=== PATIENT | female | born 1985 | race Caucasian/White ===

== ENCOUNTER → 2020-03-03 10:24 | Outpatient (BNVA) | payer OTHER, SELFPAY | PROVIDERS: PCP Internal Medicine; Referring Provider Internal Medicine; Visit Provider Nurse Practitioner | DX: K21.9 Gastro-esophageal reflux disease without esophagitis (principal); Z88.0 Allergy status to penicillin; Z88.8 Allergy status to other drugs, medicaments and biological substances; Z79.899 Other long term (current) drug therapy | CPT/HCPCS: 99212 ==

== ENCOUNTER 2020-06-18 10:14 | Outpatient (REF) | payer OTHER, SELFPAY ==
[2020-06-18 11:10] LABS: MANUAL DIFF FLAG NO
[2020-06-18 11:16] LABS: Basophils Percent Auto 0.2 % (0-2); Eosinophils Absolute Auto 0.1 X10*3/uL (0.0-0.4); Hematocrit 42.1 % (37-47); Hemoglobin 13.9 g/dl (12.0-16.0); Imm Gran Abs Auto 0.02 X10*3/uL (0.00-0.03); Imm Gran Pct Auto 0.3 % (0.0-0.4); Lymphocytes Absolute Auto 1.6 X10*3/uL (1.2-4.9); Lymphocytes Percent Auto 25.6 % (20-40); Mean Corpuscular Volume 90.9 fL (80-98); Mean Platelet Volume 10.8 fL (9.4-12.3); Monocytes Absolute Auto 0.5 X10*3/uL (0.1-1.2); Monocytes Percent Auto 7.7 % (2-11); Neutrophils Percent Auto 65.2 % (45-73); Platelet Count 229 X10*3/uL (160-400); Red Blood Count 4.63 X10*6/uL (4.20-5.50); Red Cell Distribution Width 12.1 % (11.0-16.0); White Blood Count 6.1 X10*3/uL (4.8-10.8)
[2020-06-18 11:36] LABS: Glucose Urine UA NEG (NEG); Leukocyte Esterase Urine NEG (NEG); Nitrite Urine NEG (NEG); Specific Gravity - Urine >= 1.030 (1.005-1.025); Urine Blood NEG (NEG); Urine Ketones NEG (NEG); Urine Protein NEG (NEG-TRACE)
[2020-06-18 11:39] LABS: Appearance Urine HAZY; Color Urine YELLOW
[2020-06-18 11:48] LABS: Alanine Aminotransferase 24 U/L (0-31); Albumin Level 4.3 g/dL (3.5-5.0); Alkaline Phosphatase 61 U/L (39-117); Anion Gap 14 (12-20); Aspartate Amino Transferase 16 U/L (5-31); Blood Urea Nitrogen 12 mg/dL (9-16); Calcium 9.1 mg/dL (8.4-10.2); Carbon Dioxide 24 mmol/L (22-29); Chloride 104 mmol/L (96-108); Cholesterol 188 mg/dL; Estimated Glomerular Filt Rate > 60; Glucose Random 117 mg/dL (60-115); HDL Cholesterol 46 mg/dL; LDL Cholesterol Calculated 122 mg/dl; Potassium 4.1 mmol/L (3.3-5.1); Sodium 138 mmol/L (135-145); Total Protein 6.9 g/dL (6.5-8.0); Triglycerides 101 mg/dL
[2020-06-18 11:58] LABS: Free T4 (Free Thyroxine) 0.92 ng/dL (0.71-1.85); Thyroid Stimulating Hormone 1.39 uIU/mL (0.32-4.0); Vitamin D 25-OH Total 16.7 ng/mL (>30)
[2020-06-18 12:08] LABS: Bacteria Urine 1+ /LPF; Mucus Urine 2+ /LPF; RBC Urine 0-2 /HPF (0); Squamous Epithelial Cell Urine 2+ /LPF; WBC Urine 0-2 /HPF (0-4)
[2020-06-18 12:16] LABS: Folate 17.2 ng/mL (> or = 4.0); Vitamin B12 379 pg/mL (200-900)
== END 2020-06-18 10:15 | disposition home or self-care (01) ==
LOC: HO.LAB 10:14
PROVIDERS: PCP Internal Medicine; Visit Provider Internal Medicine
DX: E66.9 Obesity, unspecified (principal); E78.00 Pure hypercholesterolemia, unspecified
CPT/HCPCS: 36415; 80053; 80061; 81001; 82306; 82607; 82746; 84439; 84443; 85025

== ENCOUNTER 2020-07-28 08:49 | Outpatient (REF) | payer OTHER, SELFPAY ==
--- NOTE | ~2020-07-28 | FL_ITS ---
EXAMINATION: FL BARIUM SWALLOW CLINICAL INFORMATION: Episodes of dysphagia or obstruction in the neck region. COMPARISON: None TECHNIQUE: Barium swallow examination is performed using fluoroscopic evaluation in addition to multiple fluoroscopic spot views. The patient is imaged both upright and prone and using both thick and thin sulfate along with effervescent granules. Fluoroscopy time: 1.2 minutes DAP: 7.3 Gycm2 Images: 58 FINDINGS: Following oral administration of thick barium and barium-coated turkey in upright view, there is normal propagation of bolus from the oral cavity through the pharynx, esophagus into stomach without any evidence of obstruction, narrowing or stricture. No laryngeal penetration or aspiration seen. No soft tissue mass or filling defect seen within the oropharynx or pharynx. On oral administration of barium tablet, there is spontaneous passage of the tablet through the pharynx to the esophagus into stomach. No obstruction seen. On placing patient prone and oral administration of thin barium, there is good distention of the entire esophagus without any intraluminal filling defect or narrowing. No indentation or mass effect seen in the esophagus, in the neck or the chest region. FL/FL barium swallow IMPRESSION: Unremarkable barium swallow.
== END 2020-07-28 08:50 | disposition home or self-care (01) ==
LOC: HO.XRAY 08:49
PROVIDERS: PCP Internal Medicine; Visit Provider Internal Medicine
DX: R13.10 Dysphagia, unspecified (principal)
CPT/HCPCS: 74220

== ENCOUNTER → 2020-08-31 15:25 | Outpatient (BNVA) | payer OTHER, SELFPAY | PROVIDERS: Visit Provider Nurse Practitioner ==

== ENCOUNTER → 2020-11-15 08:12 | Outpatient (BNVA) | payer OTHER, SELFPAY | PROVIDERS: PCP Internal Medicine; Visit Provider Nurse Practitioner ==

== ENCOUNTER 2021-04-15 08:14 | Outpatient (REF) | payer OTHER, SELFPAY ==
--- NOTE | ~2021-04-15 | XR_ITS ---
EXAMINATION: XR CHEST CLINICAL INFORMATION: Pain in right shoulder. COMPARISON: None TECHNIQUE: PA and lateral views of the chest are obtained. FINDINGS: No significant abnormality is noted involving the heart, lungs, mediastinum, bony thorax or soft tissues. XR/XR chest 2V IMPRESSION: Normal chest.
--- NOTE | ~2021-04-15 | XR_ITS ---
EXAMINATION: XR SHOULDER, RIGHT XR SHOULDER, LEFT CLINICAL INFORMATION: Pain in right shoulder. COMPARISON: None TECHNIQUE: AP external, Grashey, scapular Y and axillary views of each shoulder are obtained. FINDINGS: Right Shoulder: There is no fracture or malalignment. The glenohumeral and acromioclavicular joints appear normal. Left Shoulder: There is no fracture or malalignment. The glenohumeral and acromioclavicular joints appear normal. XR/XR shoulder LT min 2V IMPRESSION: Normal bilateral shoulders.
--- NOTE | ~2021-04-15 | XR_ITS ---
EXAMINATION: XR SHOULDER, RIGHT XR SHOULDER, LEFT CLINICAL INFORMATION: Pain in right shoulder. COMPARISON: None TECHNIQUE: AP external, Grashey, scapular Y and axillary views of each shoulder are obtained. FINDINGS: Right Shoulder: There is no fracture or malalignment. The glenohumeral and acromioclavicular joints appear normal. Left Shoulder: There is no fracture or malalignment. The glenohumeral and acromioclavicular joints appear normal. XR/XR shoulder RT min 2V IMPRESSION: Normal bilateral shoulders.
[2021-04-15 08:30] LABS: MANUAL DIFF FLAG NO
[2021-04-15 08:41] LABS: Basophils Percent Auto 0.3 % (0-2); Eosinophils Absolute Auto 0.1 X10*3/uL (0.0-0.4); Eosinophils Percent Auto 1.4 % (0-4); Hematocrit 42.2 % (37.0-47.0); Imm Gran Abs Auto 0.02 X10*3/uL (0.00-0.03); Imm Gran Pct Auto 0.3 % (0.0-0.4); Lymphocytes Absolute Auto 1.7 X10*3/uL (1.2-4.9); Lymphocytes Percent Auto 25.2 % (20-40); Mean Corpuscular HGB Conc 33.2 g/dl (31.0-35.0); Mean Corpuscular Hemoglobin 30.4 pg (27.0-33.0); Mean Corpuscular Volume 91.5 fL (80.0-98.0); Mean Platelet Volume 10.4 fL (9.4-12.3); Monocytes Absolute Auto 0.6 X10*3/uL (0.1-1.2); Neutrophils Absolute Auto 4.2 x10*3/uL (2.0-8.3); Neutrophils Percent Auto 63.8 % (45-73); Platelet Count 213 X10*3/uL (160-400); Red Blood Count 4.61 X10*6/uL (4.20-5.50); Red Cell Distribution Width 11.7 % (11.0-16.0); White Blood Count 6.6 X10*3/uL (4.8-10.8)
[2021-04-15 08:49] LABS: Estimated Average Glucose 103 mg/dL; Hemoglobin A1c % 5.2 %
[2021-04-15 09:07] LABS: Alanine Aminotransferase 23 U/L (0-31); Albumin Level 4.4 g/dL (3.5-5.0); Alkaline Phosphatase 58 U/L (39-117); Anion Gap 12 (12-20); Aspartate Amino Transferase 17 U/L (5-31); Bilirubin Total 0.9 mg/dL (0.0-1.0); Blood Urea Nitrogen 13 mg/dL (9-16); C Reactive Protein 0.52 mg/dL (< or = 0.50); Calcium 9.5 mg/dL (8.4-10.2); Carbon Dioxide 23 mmol/L (22-29); Chloride 106 mmol/L (96-108); Cholesterol 204 mg/dL; Estimated Glomerular Filt Rate > 60; Glucose Random 112 mg/dL (60-115); HDL Cholesterol 51 mg/dL; LDL Cholesterol Calculated 135 mg/dl; Potassium 4.3 mmol/L (3.3-5.1); Sodium 137 mmol/L (135-145); Total Protein 7.1 g/dL (6.5-8.0); Triglycerides 94 mg/dL
[2021-04-15 09:29] LABS: Free T4 (Free Thyroxine) 0.97 ng/dL (0.71-1.85); Thyroid Stimulating Hormone 1.54 uIU/mL (0.32-4.0); Vitamin D 25-OH Total 19.1 ng/mL (>30)
[2021-04-15 09:34] LABS: Erythrocyte Sedimentation Rate 4 MM/HR (0-20)
[2021-04-15 09:41] LABS: Cortisol Random 9.2 ug/dL
[2021-04-15 09:52] LABS: Appearance Urine CLEAR; Color Urine YELLOW; Glucose Urine UA NEG (NEG); Leukocyte Esterase Urine NEG (NEG); Nitrite Urine NEG (NEG); Specific Gravity - Urine 1.025 (1.005-1.025); Urine Blood NEG (NEG); Urine Ketones NEG (NEG); Urine Protein NEG (NEG-TRACE)
[2021-04-15 09:52] LABS: Folate 16.1 ng/mL (> or = 4.0); Vitamin B12 329 pg/mL (200-900)
[2021-04-15 10:07] LABS: Bacteria Urine 2+ /LPF; Mucus Urine 1+ /LPF; RBC Urine 0 /HPF (0); Squamous Epithelial Cell Urine 2+ /LPF; WBC Urine 0-2 /HPF (0-4)
== END 2021-04-15 08:15 | disposition home or self-care (01) ==
LOC: HO.XRAY 08:14
PROVIDERS: PCP Internal Medicine; Visit Provider Internal Medicine
DX: M25.511 Pain in right shoulder (principal); M25.512 Pain in left shoulder; E66.9 Obesity, unspecified; E78.00 Pure hypercholesterolemia, unspecified
CPT/HCPCS: 36415; 71046; 73030; 80053; 80061; 81001; 82306; 82533; 82607; 82746; 83036; 84439; 84443; 85025; 85652; 86140

== ENCOUNTER → 2021-05-16 11:05 | Outpatient (BNVA) | payer OTHER, SELFPAY | PROVIDERS: PCP Internal Medicine; Referring Provider Internal Medicine; Visit Provider Nurse Practitioner | DX: K21.9 Gastro-esophageal reflux disease without esophagitis (principal); R13.10 Dysphagia, unspecified | CPT/HCPCS: 99212 ==

== ENCOUNTER 2022-01-26 09:22 | Outpatient (REF) | payer OTHER, SELFPAY ==
[2022-01-26 10:24] LABS: MANUAL DIFF FLAG NO
[2022-01-26 11:04] LABS: Basophils Percent Auto 0.4 % (0-2); Eosinophils Absolute Auto 0.1 X10*3/uL (0.0-0.4); Hematocrit 42.4 % (37.0-47.0); Hemoglobin 14.1 g/dl (12.0-16.0); Imm Gran Abs Auto 0.02 X10*3/uL (0.00-0.03); Imm Gran Pct Auto 0.3 % (0.0-0.4); Lymphocytes Absolute Auto 1.6 X10*3/uL (1.2-4.9); Lymphocytes Percent Auto 22.7 % (20-40); Mean Corpuscular HGB Conc 33.3 g/dl (31.0-35.0); Mean Corpuscular Hemoglobin 30.2 pg (27.0-33.0); Mean Corpuscular Volume 90.8 fL (80.0-98.0); Mean Platelet Volume 10.8 fL (9.4-12.3); Monocytes Absolute Auto 0.5 X10*3/uL (0.1-1.2); Monocytes Percent Auto 7.1 % (2-11); Neutrophils Absolute Auto 4.7 x10*3/uL (2.0-8.3); Neutrophils Percent Auto 67.5 % (45-73); Platelet Count 216 X10*3/uL (160-400); Red Blood Count 4.67 X10*6/uL (4.20-5.50); White Blood Count 6.9 X10*3/uL (4.8-10.8)
[2022-01-26 11:30] LABS: Alanine Aminotransferase 18 U/L (0-31); Albumin Level 4.5 g/dL (3.5-5.0); Alkaline Phosphatase 68 U/L (39-117); Anion Gap 16 (12-20); Aspartate Amino Transferase 14 U/L (5-31); Bilirubin Total 0.5 mg/dL (0.0-1.0); Blood Urea Nitrogen 14 mg/dL (9-16); C Reactive Protein 0.53 mg/dL (< or = 0.50); Calcium 9.2 mg/dL (8.4-10.2); Carbon Dioxide 21 mmol/L (22-29); Chloride 103 mmol/L (96-108); Estimated Glomerular Filt Rate > 60; Glucose Random 105 mg/dL (60-115); Magnesium 1.8 mg/dL (1.6-2.6); Potassium 4.2 mmol/L (3.3-5.1); Rheumatoid Factor < 15.0 IU/mL (<15.0); Sodium 136 mmol/L (135-145); Total Protein 7.1 g/dL (6.5-8.0)
[2022-01-26 11:54] LABS: Ferritin 37 ng/mL (10-122); Free T4 (Free Thyroxine) 0.93 ng/dL (0.71-1.85); Thyroid Stimulating Hormone 1.07 uIU/mL (0.32-4.0)
[2022-01-26 12:12] LABS: Erythrocyte Sedimentation Rate 5 MM/HR (0-20)
[2022-01-26 12:38] LABS: Insulin 9 uU/mL (2-29)
[2022-01-27 12:47] LABS: Calcium (PTHI) 9.4 mg/dL (8.6-10.2); PTHI 79 pg/mL (16-77)
[2022-01-27 21:36] LABS: Thyroid Peroxidase Antibodies 6 IU/mL (<9)
[2022-01-27 21:52] LABS: Lyme Abs Screen <0.90 index
[2022-01-28 19:07] LABS: Anti Nuclear Antibody Screen NEGATIVE (NEGATIVE)
[2022-02-05 20:31] LABS: Cortisol, Free 0.17 mcg/dL
== END 2022-01-26 09:23 | disposition home or self-care (01) ==
LOC: HO.LAB 09:22
PROVIDERS: PCP Internal Medicine; Visit Provider Internal Medicine
DX: E66.9 Obesity, unspecified (principal); R79.89 Other specified abnormal findings of blood chemistry
CPT/HCPCS: 36415; 80053; 82530; 82728; 83525; 83735; 83970; 84100; 84439; 84443; 85025; 85652; 86038; 86039; 86140; 86376; 86431; 86617; 86618

== ENCOUNTER 2022-11-17 16:28 | Outpatient (AMB) | payer OTHER, MEDICAID, SELFPAY ==
[2022-11-17 16:29] VITALS: BP 100/62; PULSE 83; O2SAT 99; BMI 28.3
--- NOTE | 2022-11-17 16:29 | A.OFFPC_ITS ---
Vital Signs 11/17/22 16:29 Height 5 ft 5 in Weight 170 lb BMI 28.3 BP 100/62 Blood Pressure Location Lt brachial Pulse 83 Pulse Source Pulse Oximeter Temp Source Skin Pulse Oximetry (%) 99 Oxygen Delivery Method Room Air Intake Visit Reasons: IBS pain Intake Note: pt states IBS flair up [id number] Public Relations Representative Required: No Allergies amoxicillin [AMOXICILLIN] Allergy (Intermediate, Verified 11/17/22 16:38) HIVES Penicillins Allergy (Intermediate, Verified 11/17/22 16:38) HIVES metronidazole [From FLAGYL] Allergy (Mild, Verified 11/17/22 16:38) HIVES citalopram [Celexa] Allergy (Unknown, Verified 11/17/22 16:38) palpatations oxycodone [Percocet] Adverse Reaction (Unknown, Verified 11/17/22 16:38) stomach upset Medication List - Last Reconciled 11/17/22 by JOSIAH Licea alprazolam 0.25 mg PO DAILY PRN diphenhydramine HCl (Benadryl Allergy) 25 mg PO Q6H PRN famotidine 40 mg PO BEDTIME 90 days lactobacillus combination no.8 (Adult Probiotic) 3,000 mmu cells PO DAILY loratadine (Allergy Relief (loratadine)) 10 mg PO DAILY 90 days meclizine 25 mg PO TID PRN promethazine 25 mg PO Q4-6H PRN Tobacco use date assessed: 11/17/22 HPI IBS pain HPI Details Patient is a 37-year-old female who presents today to follow-up on IBS. Patient of Dr. Luis. Medical history significant for GERD, impaired glucose tolerance, insomnia, IBS among others. Patient reports that every couple years she has on episode where she starts with severe abdominal pain and then she has to move bowel, usually diarrhea and then her pain resolves. Patient reports this episode 3 weeks ago. Today, she denies shortness of breath, no chest pain, no nausea or vomiting, no diarrhea or constipation, no abdominal pain, no blood in stool. She would like to have something for IBS p.r.n.. In addition, patient reports that she will be having abdominoplasty in 6 days at [facility], and she reports that surgeon does not need EKG or blood work, patient reports that she would like to request EKG and blood work for peace of mind. [facility] Medical History (Updated 11/17/22 @ 16:46 by JOSIAH Licea) Allergic rhinitis Annual physical exam ASCUS (atypical squamous cells of undetermined significance) on gynecologic Papanicolaou smear complicating , antepartum Atypical nevus Irritable bowel syndrome Migraine Obesity (BMI 30-39.9) PMDD (premenstrual dysphoric disorder) Varicose veins of both lower extremities Surgical History H/O tubal ligation History of Family History Father Hypercholesterolemia HTN (hypertension) Mother Rheumatoid arteritis Myocardial infarction Paternal Grandfather Diabetes Chronic kidney disease Renal failure Paternal Grandmother Stroke Maternal Grandmother Respiratory illness Stroke Lung cancer Paternal Aunt Colon cancer Sister No problems noted. Son Depression Substance abuse Suicidal ideation Social History Housing: Apartment Alcohol intake: current Alcohol intake frequency: holidays/special occasions only Alcohol type: wine Patient Tobacco Use Status: Never used Tobacco e-Cigarette/Vaping Use: Never Used Second Hand Smoke Exposure: No Current occupational status: employed Cognitive needs: No Hearing needs: No Vision needs: No Questionnaire Thrive Questionnaire Date Thrive assessed: 01/20/22 AUDIT C Alcohol Use Questionnaire (AUDIT-C) 1. How often do you have a drink containing alcohol?: 2-4 times a month 2. How many drinks containing alcohol do you have on a typical day when you are drinking?: 1 or 2 3. How often do you have six or more drinks on one occasion?: Never Total Score: 2 Score Reviewed/Action Taken: No JAKE-7 AMB Questionnaire JAKE-7 Date JAKE - 7 assessed: 01/20/22 Source: Developed by Drs. Sheldon Key, Ginger gUalde, Eliseo Aguirre and colleagues, with an educational cassi from [employer]. Review of Systems Const Denies body aches, Denies chills, Denies fever(s) and Denies headache(s) Eyes Denies change in vision ENT Denies dizziness, Denies otalgia, Denies headache(s), Denies nasal discharge, Denies sinus pain and Denies sore throat Card Denies chest pain, Denies edema, Denies lightheadedness and Denies dyspnea Resp Denies cough and Denies dyspnea GI Reports as per HPI, Denies abdominal pain, Denies constipation, Denies diarrhea, Denies nausea and Denies vomiting Denies dysuria Musc Denies myalgias Skin/Breast Denies rash Neuro Denies dizziness and Denies headache(s) Physical exam (Primary Care) Vital Signs: Last Vital Signs Pulse 83 11/17/22 16:29 BP 100/62 11/17/22 16:29 Pulse Ox 99 11/17/22 16:29 Oxygen Delivery Method Room Air 11/17/22 16:29 BMI result Body Mass Index 28.3 Tobacco/Smoking Status: Tobacco use Status Tobacco use date assessed 11/17/22 11/17/22 16:34 Patient Tobacco Use Status Never used Tobacco 11/17/22 16:34 e-Cigarette/Vaping Use Never Used 11/17/22 16:34 Thrive Assessment: Date of Thrive Assessment Date Thrive assessed 01/20/22 11/17/22 16:34 Const General: cooperative and no acute distress Orientation/consciousness: patient oriented x3 HENMT Head: Yes normocephalic and Yes atraumatic Mouth: oropharynx normal and moist mucous membranes Throat: Yes posterior oropharynx normal Eyes General: appearance normal, both eyes and all related structures Neck Neck: Yes normal visual inspection and Yes full ROM Resp Effort & Inspection: normal respiratory effort and able to speak in complete sentences Auscultation: clear to auscultation bilaterally, no crackles, no rales, no rhonchi and no wheezes Cardio Rate: regular rate Rhythm: regular rhythm Heart sounds: S1 normal heart sound present and S2 normal heart sound present GI Palpation (GI): Soft to palpation, not firm, nontender, no guarding, not rigid and no hepatosplenomegaly Auscultation: normal bowel sounds Skin General skin exam: no rashes or lesions noted Neuro General: patient oriented x3 Gait exam (Neuro): Normal gait present Extrem General: Yes full ROM and No edema Assessment and Plan Assessment & Plan (1) Irritable bowel syndrome: Code(s): K58.9 - Irritable bowel syndrome without diarrhea Plan: Patient denies acute GI symptoms in the office today, she reports last IBS episode 3 weeks ago. Physical exam normal today. Will provide patient with dicyclomine 10 mg q.i.d. p.r.n. - possible adverse reactions reviewed with the patient. Patient agreed with the plan. Keep appointment with PCP as scheduled or follow-up sooner as needed. Orders: Orders Basic Metabolic Panel Today K58.9 - Irritable bowel syndrome without diarrhea ECG 12 lead EKG Today K58.9 - Irritable bowel syndrome without diarrhea Complete Blood Count no Diff Today K58.9 - Irritable bowel syndrome without diarrhea Medications: New dicyclomine 10 mg PO QID PRN 30 caps 0RF abdominal pain K58.9 - Irritable bowel syndrome without diarrhea Coding Level of Care Code Est Pt Level 3 (35690) Diagnoses Irritable bowel syndrome K58.9
== END 2022-11-17 16:54 | disposition home or self-care (01) ==
PROVIDERS: PCP Internal Medicine; Visit Provider Nurse Practitioner Family
DX: K58.9 Irritable bowel syndrome, unspecified (principal)
CPT/HCPCS: 99213

== ENCOUNTER 2022-11-21 06:21 | Outpatient (REF) | payer OTHER, MEDICAID, SELFPAY ==
--- NOTE | 2022-11-21 06:30 | ECG_ITS ---
Test Reason : IBS Blood Pressure : / mmHG Vent. Rate : 071 BPM Atrial Rate : 071 BPM P-R Int : 148 ms QRS Dur : 080 ms QT Int : 402 ms P-R-T Axes : 039 055 035 degrees QTc Int : 436 ms Normal sinus rhythm with sinus arrhythmia Normal ECG When compared with ECG of 05-DEC-2012 19:33, No significant change was found Referred By: Diann Sims Electronically Signed By:HARLAN LUEVANO MD
[2022-11-21 07:25] LABS: Hematocrit 40.9 % (37.0-47.0); Hemoglobin 13.5 g/dl (12.0-16.0); Mean Corpuscular Hemoglobin 30.2 pg (27.0-33.0); Mean Corpuscular Volume 91.5 fL (80.0-98.0); Mean Platelet Volume 11.6 fL (9.4-12.3); Platelet Count 207 X10*3/uL (160-400); Red Blood Count 4.47 X10*6/uL (4.20-5.50); Red Cell Distribution Width 12.6 % (11.0-16.0); White Blood Count 6.9 X10*3/uL (4.8-10.8)
[2022-11-21 07:54] LABS: Anion Gap 9 (12-20); Blood Urea Nitrogen 7 mg/dL (9-16); Calcium 9.2 mg/dL (8.4-10.2); Carbon Dioxide 26 mmol/L (22-29); Chloride 107 mmol/L (96-108); Estimated Glomerular Filt Rate > 60; Glucose Random 98 mg/dL (60-115); Potassium 3.8 mmol/L (3.3-5.1); Sodium 138 mmol/L (135-145)
== END 2022-11-21 06:22 | disposition home or self-care (01) ==
LOC: HO.LAB 06:21
PROVIDERS: PCP Internal Medicine; Visit Provider Nurse Practitioner Family
DX: K58.9 Irritable bowel syndrome, unspecified (principal)
CPT/HCPCS: 36415; 80048; 85027; 93005

== ENCOUNTER → 2022-11-21 06:30 | Outpatient (BNV) | payer OTHER, MEDICAID, SELFPAY | PROVIDERS: PCP Internal Medicine; Visit Provider Internal Medicine Cardiovascular Disease | DX: K58.8 Other irritable bowel syndrome (principal) | CPT/HCPCS: 93010 ==

== ENCOUNTER 2023-01-25 11:00 | Outpatient (AMB) | payer OTHER, SELFPAY ==
[2023-01-25 11:31] VITALS: BP 124/78; PULSE 78; O2SAT 98; BMI 28.1
--- NOTE | 2023-01-25 11:31 | A.OFFPC_ITS ---
Vital Signs 01/25/23 11:31 Height 5 ft 5 in Weight 169 lb BMI 28.1 BP 124/78 Blood Pressure Location Lt brachial Position Sitting Pulse 78 Pulse Source Pulse Oximeter Pulse Oximetry (%) 98 Oxygen Delivery Method Room Air Intake Visit Reasons: annual exam Allergies amoxicillin [AMOXICILLIN] Allergy (Intermediate, Verified 01/25/23 11:31) HIVES Penicillins Allergy (Intermediate, Verified 01/25/23 11:31) HIVES metronidazole [From FLAGYL] Allergy (Mild, Verified 01/25/23 11:31) HIVES citalopram [Celexa] Allergy (Unknown, Verified 01/25/23 11:31) palpatations oxycodone [Percocet] Adverse Reaction (Unknown, Verified 01/25/23 11:31) stomach upset Medication List - Last Reconciled 01/25/23 by Michael Luis MD alprazolam 0.25 mg PO DAILY PRN cholecalciferol (vitamin D3) 50 mcg PO DAILY dicyclomine 10 mg PO QID PRN diphenhydramine HCl (Benadryl Allergy) 25 mg PO Q6H PRN famotidine 40 mg PO BEDTIME 90 days lactobacillus combination no.8 (Adult Probiotic) 3,000 mmu cells PO DAILY loratadine (Allergy Relief (loratadine)) 10 mg PO DAILY 90 days meclizine 25 mg PO TID PRN promethazine 25 mg PO Q4-6H PRN Tobacco use date assessed: 11/17/22 Dental Screening Dental Screen Date: 01/25/23 Did you have a dental visit in the last 12 months?: Yes Did you have a dental problem in the last 6 months where you did not have access to dental care?: No Was dental information given to patient?: Patient has dentist HPI annual exam HPI Details 38-year-old overweight female with GERD impaired glucose tolerance generalized anxiety disorder last seen in December 2021 patient is here for physical exam. Review of the notes in October was seen by the nurse practitioner for it double bowel syndrome dicyclomine was prescribed. June 2022 patient had the LEEP procedure under Dr. Davis. Dr. PRior Dumas liposuction and abdominoplasty 11/23/2022 [facility] Medical History (Updated 01/25/23 @ 11:54 by Michael Luis MD) Annual physical exam ASCUS (atypical squamous cells of undetermined significance) on gynecologic Papanicolaou smear complicating , antepartum Irritable bowel syndrome Varicose veins of both lower extremities Obesity (BMI 30-39.9) PMDD (premenstrual dysphoric disorder) Allergic rhinitis Atypical nevus Migraine Surgical History (Updated 01/25/23 @ 11:57 by Michael Luis MD) History of abdominoplasty H/O tubal ligation History of Family History Father Hypercholesterolemia HTN (hypertension) Mother Rheumatoid arteritis Myocardial infarction Paternal Grandfather Diabetes Chronic kidney disease Renal failure Paternal Grandmother Stroke Maternal Grandmother Respiratory illness Stroke Lung cancer Paternal Aunt Colon cancer Sister No problems noted. Son Depression Substance abuse Suicidal ideation Social History (Updated 01/25/23 @ 12:03 by Michael Luis MD) Housing: Apartment Alcohol intake: current Alcohol intake frequency: holidays/special occasions only Alcohol type: wine Patient Tobacco Use Status: Never used Tobacco e-Cigarette/Vaping Use: Never Used Second Hand Smoke Exposure: No Current occupational status: employed Cognitive needs: No Hearing needs: No Vision needs: No Questionnaire PHQ-9 Over the last 2 weeks, how often have you been bothered by any of the following problems? 1. Little interest or pleasure in doing things: not at all 2. Feeling down, depressed, or hopeless: not at all 3. Trouble falling or staying asleep, or sleeping too much: not at all 4. Feeling tired or having little energy: not at all 5. Poor appetite or overeating: not at all 6. Feeling bad about yourself - or that you are a failure or have let yourself or your family down: not at all 7. Trouble concentrating on things, such as reading the newspaper or watching television: not at all 8. Moving or speaking so slowly that other people could have noticed. Or the opposite - being so fidgety or restless that you have been moving around a lot more than usual: not at all 9. Thoughts that you would be better off or of hurting yourself in some way: not at all Total score: 0 Depression Screening Interpretation: Negative Source: Developed by Drs. Sheldon L. YesiGinger syed Kurt Kroenke and colleagues, with an educational cassi from [employer]. Thrive Questionnaire Date Thrive assessed: 01/25/23 I am a: Patient What is your living situation today?: I have a steady place to live Within the past 12 months, did the food you bought not last and you didn't have the money to get more?: Never true Within the past 12 months, did you worry whether your food would run out before you got money to buy more?: Never true Do you have trouble paying for medicines?: No Do you have trouble getting transportation to medical appointments?: No Do you have trouble paying your heating and electricity bill?: No Do you have trouble taking care of your child, family member or friend?: No Do you have trouble with day-to-day activities such as bathing, preparing meals, shopping, managing finances, etc.?: No Are you currently unemployed and looking for a job?: No Are you interested in more education?: No Currently or been in a relationship where the following occur: no concerns reported AUDIT C Alcohol Use Questionnaire (AUDIT-C) 1. How often do you have a drink containing alcohol?: 2-4 times a month 2. How many drinks containing alcohol do you have on a typical day when you are drinking?: 1 or 2 3. How often do you have six or more drinks on one occasion?: Never Total Score: 2 Score Reviewed/Action Taken: No JAKE-7 AMB Questionnaire JAKE-7 Date JAKE - 7 assessed: 01/25/23 Feeling nervous, anxious, or on edge: 1 = Several days Not being able to stop or control worryin = Several days Worrying too much about different things: 1 = Several days Trouble relaxin = Not at all Being so restless that it is hard to sit still: 0 = Not at all Becoming easily annoyed or irritable: 0 = Not at all Feeling afraid as if something awful might happen: 0 = Not at all Total JAKE-7 score (0-4 normal; 5-9 mild; 10-14 moderate; 15-21 severe): 3 Source: Developed by Ginger Painter Kurt Kroenke and colleagues, with an educational cassi from [employer]. Review of Systems Const Denies poor appetite and Denies weakness Eyes Denies no additional complaints ENT Reports Normal hearing present, Denies dizziness, Denies nasal congestion, Denies tinnitus and Denies sore throat Card Denies chest pain, Denies syncope, Denies rapid heart rate and Denies dyspnea Resp Denies cough and Denies dyspnea GI Denies change in stool character, Reports constipation, Denies diarrhea, Denies nausea and Denies vomiting Denies urinary frequency, Denies difficulty voiding and Denies dysuria Neuro Reports Normal hearing present, Denies confusion, Denies dizziness, Denies syncope and Denies weakness Psych Denies confusion Physical exam (Primary Care) Vital Signs: Last Vital Signs Pulse 78 01/25/23 11:31 BP 124/78 01/25/23 11:31 Pulse Ox 98 01/25/23 11:31 Oxygen Delivery Method Room Air 01/25/23 11:31 BMI result Body Mass Index 28.1 Tobacco/Smoking Status: Tobacco use Status Tobacco use date assessed 11/17/22 01/25/23 11:34 Patient Tobacco Use Status Never used Tobacco 01/25/23 11:34 e-Cigarette/Vaping Use Never Used 01/25/23 11:34 PHQ-9: PHQ-9 Score PHQ-9: Total score 0 01/25/23 11:34 Depression Screening Interpretation: Negative Thrive Assessment: Date of Thrive Assessment Date Thrive assessed 01/25/23 01/25/23 11:34 Currently or been in a relationship where the following occur: no concerns reported Const General: No confusion Orientation/consciousness: No confusion HENMT Head: Yes normocephalic Ears: external ears normal and TM's normal bilaterally Face and sinus: Yes normal facial exam Mouth: moist mucous membranes Throat: Yes tonsils normal Eyes Conjunctivae: conjunctivae normal Pupils: Equal, round and reactive pupils present and Pupil accommodation reflex normal Direct Ophthalmoscopy: normal light reflex Neck Neck: No lymphadenopathy Thyroid: Thyroid normal Chest Chest palpation & inspection: normal inspection of the chest Resp Effort & Inspection: normal respiratory effort and no audible wheezes Auscultation: clear to auscultation bilaterally, no crackles, no wheezes and lung sounds not diminished Cardio Rate: regular rate Rhythm: regular rhythm Peripheral pulses: radial pulses present and dorsalis pedis present GI Other: Patient has the body suit and declined taking it off. Palpation (GI): no masses Rectal Exam - Female: deferred Skin General skin exam: no rashes or lesions noted Rashes: no rashes Neuro General: No confusion Cranial nerves: Yes Equal, round and reactive pupils present and Yes Normal hearing present Cognition (Neuro): normal cognition Gait exam (Neuro): Normal gait present Motor exam (neuro): 5/5 motor strength present throughout Deep tendon reflexes (DTR's): Right brachioradialis reflex intensity grade: 2+, Left brachioradialis reflex intensity grade: 2+, Right patellar reflex intensity grade: 2+ and Left patellar reflex intensity grade: 2+ Extrem General: No edema Assessment and Plan Assessment & Plan (1) Annual physical exam: Code(s): Z00.00 - Encounter for general adult medical examination without abnormal findings (2) Overweight (BMI 25.0-29.9): Code(s): E66.3 - Overweight Plan: Continue with diet and exercise (3) GERD (gastroesophageal reflux disease): Code(s): K21.9 - Gastro-esophageal reflux disease without esophagitis Qualifiers: Esophagitis presence: without esophagitis Qualified Code(s): K21.9 - Gastro-esophageal reflux disease without esophagitis Plan: Avoid the foods that causes that usually spicy foods, tomato products, juices, coffee, soda and foods that your sensitive to. After eating do not lie down, allow 3-4 hours before in lie down. And keep the head of bed above 30 degrees to avoid the acid from going up. (4) Impaired glucose tolerance: Code(s): R73.02 - Impaired glucose tolerance (oral) Plan: Decrease the amount of carbohydrate intake, pasta, bread, rice and potatoes are all sugar and that is aside from all the sweet stuff, remember that fruits are good but they are Sweet also. (5) Hypercholesterolemia: Code(s): E78.00 - Pure hypercholesterolemia, unspecified Plan: Avoid fried foods, chicken skin, eggs, butter margarine, pastries and meat. Be it pork or beef they have a lot of cholesterol LDL goal of less than 130 and triglyceride of less than 150 (6) Generalized anxiety disorder: Code(s): F41.1 - Generalized anxiety disorder Orders: Orders Complete Blood Count Auto Diff Today R73.02 - Impaired glucose tolerance (oral) Hemoglobin A1c Today R73.02 - Impaired glucose tolerance (oral) Lipid Panel Today E78.00 - Pure hypercholesterolemia, unspecified, R73.02 - Impaired glucose tolerance (oral) Free T4 (Free Thyroxine) Today R73.02 - Impaired glucose tolerance (oral) Vitamin D 25-OH Total Today R73.02 - Impaired glucose tolerance (oral) Comprehensive Met. Panel Today R73.02 - Impaired glucose tolerance (oral) Thyroid Stimulating Hormone Today R73.02 - Impaired glucose tolerance (oral) Vitamin B12 and Folate Today R73.02 - Impaired glucose tolerance (oral) Medications: Refilled alprazolam 0.25 mg PO DAILY PRN 30 tabs 0RF anxiety F41.9 - Anxiety disorder, unspecified meclizine 25 mg PO TID PRN 90 tabs 0RF dizziness Coding Level of Care Code Est Pt Prev Care 18-39y(60641) Diagnoses Annual physical exam Z00.00 Overweight (BMI 25.0-29.9) E66.3 Gastroesophageal reflux disease without esophagitis K21.9 Esophagitis presence: without esophagitis Impaired glucose tolerance R73.02 Hypercholesterolemia E78.00 Generalized anxiety disorder F41.1
== END 2023-01-25 12:36 | disposition home or self-care (01) ==
PROVIDERS: Visit Provider Internal Medicine
DX: Z00.00 Encounter for general adult medical examination without abnormal findings (principal); E66.3 Overweight; Z68.28 Body mass index [BMI] 28.0-28.9, adult; K21.9 Gastro-esophageal reflux disease without esophagitis
CPT/HCPCS: 99395

== ENCOUNTER 2023-11-13 08:53 | Outpatient (AMB) | payer OTHER, SELFPAY ==
--- NOTE | 2023-11-13 09:15 | AM.OFFVISNUR ---
Intake Visit Reasons: PPD Implant Allergies amoxicillin [AMOXICILLIN] Allergy (Intermediate, Verified 01/25/23 11:31) HIVES Penicillins Allergy (Intermediate, Verified 01/25/23 11:31) HIVES metronidazole [From FLAGYL] Allergy (Mild, Verified 01/25/23 11:31) HIVES citalopram [Celexa] Allergy (Unknown, Verified 01/25/23 11:31) palpatations oxycodone [Percocet] Adverse Reaction (Unknown, Verified 01/25/23 11:31) stomach upset Office Meds tuberculin PPD 5 tub. unit/0.1 mL intradermal injection solution Performing Provider: Michael Luis MD [facility] Administered by: Elsa Rausch RN on 11/13/23 09:22 Dose Route Admin Location Dispensed Lot Number Expiration Date NDC Injector Assembler 0.1 mL intradermal 0.1 mL [id number] 09/26/26 [id number] [employer] Assessment & Plan Assessment & Plan Orders: Orders AMB PPD Planted Today Z11.1 - Encounter for screening for respiratory tuberculosis Medications: New tuberculin PPD 0.1 mL intradermal ONCE 0.1 mL 0RF Z11.1 - Encounter for screening for respiratory tuberculosis
== END 2023-11-13 09:19 | disposition home or self-care (01) ==
PROVIDERS: PCP Internal Medicine; Visit Provider Internal Medicine
DX: Z11.1 Encounter for screening for respiratory tuberculosis (principal)
CPT/HCPCS: 86580

== ENCOUNTER 2023-11-15 09:38 | Outpatient (REF) | payer OTHER, SELFPAY ==
[2023-11-15 11:10] LABS: HBc Num1 0.17 S/CO (0.00-0.79); HBsAGNum1 0.28 S/CO (0.00-0.99); Hepatitis B Core Antibody Nonreactive (Nonreactive); Hepatitis B Surface Antigen Negative (Negative); ~HepC Num1 0.08 S/CO (0.00-0.79); ~Hepatitis B Surface Antibody REACTIVE (Nonreactive); ~Hepatitis C Antibody Nonreactive (Nonreactive)
[2023-11-16 21:13] LABS: Rubella IgG Antibody 4.43 Index
[2023-11-18 03:04] LABS: TS Negative Control Passed; TS Panel A 0; TS Panel B 0; TS Positive Control Passed; TSpotTB Negative (Negative)
== END 2023-11-15 09:39 | disposition home or self-care (01) ==
LOC: HO.LAB 09:38
PROVIDERS: PCP Internal Medicine; Visit Provider Internal Medicine
DX: Z02.0 Encounter for examination for admission to educational institution (principal); R79.89 Other specified abnormal findings of blood chemistry
CPT/HCPCS: 36415; 86481; 86704; 86706; 86735; 86762; 86765; 86787; 86803; 87340

== ENCOUNTER 2023-11-20 09:57 | Outpatient (REF) | payer OTHER, SELFPAY ==
[2023-11-20 10:19] LABS: MANUAL DIFF FLAG NO
[2023-11-20 11:31] LABS: Basophils Percent Auto 0.5 % (0-2); Eosinophils Absolute Auto 0.1 X10*3/uL (0.0-0.4); Eosinophils Percent Auto 1.5 % (0-4); Hematocrit 42.6 % (37.0-47.0); Hemoglobin 14.3 g/dl (12.0-16.0); Imm Gran Abs Auto 0.02 X10*3/uL (0.00-0.03); Imm Gran Pct Auto 0.3 % (0.0-0.4); Lymphocytes Absolute Auto 1.6 X10*3/uL (1.2-4.9); Lymphocytes Percent Auto 26.8 % (20-40); Mean Corpuscular HGB Conc 33.6 g/dl (31.0-35.0); Mean Corpuscular Volume 92.2 fL (80.0-98.0); Mean Platelet Volume 10.4 fL (9.4-12.3); Monocytes Absolute Auto 0.4 X10*3/uL (0.1-1.2); Monocytes Percent Auto 6.5 % (2-11); Neutrophils Absolute Auto 3.8 x10*3/uL (2.0-8.3); Neutrophils Percent Auto 64.4 % (45-73); Platelet Count 231 X10*3/uL (160-400); Red Blood Count 4.62 X10*6/uL (4.20-5.50); Red Cell Distribution Width 12.6 % (11.0-16.0)
[2023-11-20 12:19] LABS: Estimated Average Glucose 94 mg/dL; Hemoglobin A1c % 4.9 % (<6.0)
[2023-11-20 12:26] LABS: Alanine Aminotransferase 20 U/L (0-31); Albumin Level 4.6 g/dL (3.5-5.0); Alkaline Phosphatase 60 U/L (39-117); Anion Gap 13 (12-20); Aspartate Amino Transferase 17 U/L (5-31); Bilirubin Total 0.9 mg/dL (0.0-1.0); Blood Urea Nitrogen 11 mg/dL (9-16); Carbon Dioxide 25 mmol/L (22-29); Chloride 105 mmol/L (96-108); Cholesterol 221 mg/dL (<200); Estimated Glomerular Filt Rate > 60; Glucose Random 87 mg/dL (60-115); HDL Cholesterol 62 mg/dL (>40); LDL Cholesterol Calculated 142 mg/dL (<100); Sodium 139 mmol/L (135-145); Total Protein 7.3 g/dL (6.5-8.0); Triglycerides 85 mg/dL (<150)
[2023-11-20 12:31] LABS: Free T4 (Free Thyroxine) 0.86 ng/dL (0.71-1.85); Thyroid Stimulating Hormone 1.54 uIU/mL (0.32-4.0); Vitamin D 25-OH Total 35.9 ng/mL (>30)
[2023-11-20 12:47] LABS: Folate 11.2 ng/mL (> or = 4.0); Vitamin B12 410 pg/mL (200-900)
== END 2023-11-20 09:58 | disposition home or self-care (01) ==
LOC: HO.LAB 09:57
PROVIDERS: PCP Internal Medicine; Visit Provider Internal Medicine
DX: R73.02 Impaired glucose tolerance (oral) (principal); E78.00 Pure hypercholesterolemia, unspecified
CPT/HCPCS: 36415; 80053; 80061; 82306; 82607; 82746; 83036; 84439; 84443; 85025

== ENCOUNTER 2024-01-31 09:59 | Outpatient (AMB) | payer OTHER, SELFPAY ==
--- NOTE | 2024-01-31 10:02 | A.OFFPC_ITS ---
Vital Signs 01/31/24 10:03 Height 5 ft 5 in Weight 196 lb BMI 32.6 BP 112/80 Blood Pressure Location Lt brachial Position Sitting Pulse 83 Pulse Source Pulse Oximeter Pulse Oximetry (%) 98 Oxygen Delivery Method Room Air Intake Visit Reasons: Annual Exam Intake Note: Patient here for an Annual Physical Exam Senior Group Manager Required: No Accompanied by: Self / Same As Patient Allergies amoxicillin [AMOXICILLIN] Allergy (Intermediate, Verified 01/31/24 10:07) HIVES Penicillins Allergy (Intermediate, Verified 01/31/24 10:07) HIVES metronidazole [From FLAGYL] Allergy (Mild, Verified 01/31/24 10:07) HIVES citalopram [Celexa] Allergy (Unknown, Verified 01/31/24 10:07) palpatations oxycodone [Percocet] Adverse Reaction (Unknown, Verified 01/31/24 10:07) stomach upset Medication List - Last Reconciled 01/31/24 by Michael Luis MD alprazolam 0.25 mg PO DAILY PRN cholecalciferol (vitamin D3) 50 mcg PO DAILY diphenhydramine HCl (Benadryl Allergy) 25 mg PO Q6H PRN famotidine 40 mg PO BEDTIME 90 days lactobacillus combination no.8 (Adult Probiotic) 3,000 mmu cells PO DAILY loratadine (Allergy Relief (loratadine)) 10 mg PO DAILY 90 days meclizine 25 mg PO TID PRN promethazine 25 mg PO Q4-6H PRN Tobacco use date assessed: 01/31/24 Dental Screening Dental Screen Date: 01/31/24 Did you have a dental visit in the last 12 months?: Yes Did you have a dental problem in the last 6 months where you did not have access to dental care?: No Was dental information given to patient?: Patient has dentist HPI Annual Exam HPI Details 39-year-old obese female with GERD impai red glucose tolerance hypercholesterolemia and generalized anxiety disorder last seen in 01/17/2023. dizzy for tinnitus , , dysphagia, still, came back from [place] last 3 days ago. , complains of rash on the face. FORMERLY [facility] Medical History (Updated 01/31/24 @ 19:11 by Michael Luis MD) Annual physical exam ASCUS (atypical squamous cells of undetermined significance) on gynecologic Papanicolaou smear complicating , antepartum Irritable bowel syndrome Varicose veins of both lower extremities Obesity (BMI 30-39.9) PMDD (premenstrual dysphoric disorder) Allergic rhinitis Atypical nevus Migraine Surgical History History of abdominoplasty H/O tubal ligation History of Family History Father Hypercholesterolemia HTN (hypertension) Mother Rheumatoid arteritis Myocardial infarction Paternal Grandfather Diabetes Chronic kidney disease Renal failure Paternal Grandmother Stroke Maternal Grandmother Respiratory illness Stroke Lung cancer Paternal Aunt Colon cancer Sister No problems noted. Son Depression Substance abuse Suicidal ideation Social History (Updated 01/31/24 @ 10:33 by Michael Luis MD) Housing: Apartment Alcohol intake: current Alcohol intake frequency: holidays/special occasions only Alcohol type: wine Comment: once a month glass Patient Tobacco Use Status: Never used Tobacco e-Cigarette/Vaping Use: Never Used Second Hand Smoke Exposure: No service: No Current occupational status: employed Current occupational exposures/hazards: No Cognitive needs: No Hearing needs: No Vision needs: No Questionnaire PHQ-9 Over the last 2 weeks, how often have you been bothered by any of the following problems? 1. Little interest or pleasure in doing things: several days 2. Feeling down, depressed, or hopeless: several days 3. Trouble falling or staying asleep, or sleeping too much: several days 4. Feeling tired or having little energy: nearly every day 5. Poor appetite or overeating: not at all 6. Feeling bad about yourself - or that you are a failure or have let yourself or your family down: not at all 7. Trouble concentrating on things, such as reading the newspaper or watching television: not at all 8. Moving or speaking so slowly that other people could have noticed. Or the opposite - being so fidgety or restless that you have been moving around a lot more than usual: not at all 9. Thoughts that you would be better off or of hurting yourself in some way: not at all Total score: 6 Depression Screening Interpretation: Positive Depression Screening Done: Yes Source: Developed by Ginger Painter.W. Aftab, Eliseo Aguirre and colleagues, with an educational cassi from [employer]. Thrive Questionnaire Date Thrive assessed: 01/24/24 I am a: Patient What is your living situation today?: I have a steady place to live Within the past 12 months, did the food you bought not last and you didn't have the money to get more?: Never true Within the past 12 months, did you worry whether your food would run out before you got money to buy more?: Never true Do you have trouble paying for medicines?: No Do you have trouble getting transportation to medical appointments?: No Do you have trouble paying your heating and electricity bill?: No Do you have trouble taking care of your child, family member or friend?: No Do you have trouble with day-to-day activities such as bathing, preparing meals, shopping, managing finances, etc.?: No Are you currently unemployed and looking for a job?: No Are you interested in more education?: No Please select the resources that you would like help with: None Currently or been in a relationship where the following occur: No concerns reported THRIVE Score: 0 AUDIT C Alcohol Use Questionnaire (AUDIT-C) 1. How often do you have a drink containing alcohol?: Monthly or less 2. How many drinks containing alcohol do you have on a typical day when you are drinking?: 1 or 2 3. How often do you have six or more drinks on one occasion?: Never Total Score: 1 JAKE-7 AMB Questionnaire JAKE-7 Date JAKE - 7 assessed: 01/31/24 Feeling nervous, anxious, or on edge: 2 = More than half the days Not being able to stop or control worryin = Several days Worrying too much about different things: 1 = Several days Trouble relaxin = Nearly every day Being so restless that it is hard to sit still: 1 = Several days Becoming easily annoyed or irritable: 3 = Nearly every day Feeling afraid as if something awful might happen: 0 = Not at all Total JAKE-7 score (0-4 normal; 5-9 mild; 10-14 moderate; 15-21 severe): 11 Source: Developed by Drs. Sheldon Key, Eliseo Peralta and colleagues, with an educational cassi from [employer]. Review of Systems Const Denies poor appetite and Denies weakness Eyes Denies no additional complaints ENT Reports Normal hearing present, Denies dizziness, Denies nasal congestion, Denies tinnitus and Denies sore throat Card Denies chest pain, Denies syncope, Denies rapid heart rate and Denies dyspnea Resp Denies cough and Denies dyspnea GI Denies change in stool character, Reports constipation, Denies diarrhea, Denies nausea and Denies vomiting Denies urinary frequency, Denies difficulty voiding and Denies dysuria Neuro Reports Normal hearing present, Denies confusion, Denies dizziness, Denies syncope and Denies weakness Psych Denies confusion Physical exam (Primary Care) Vital Signs: Last Vital Signs Pulse 83 01/31/24 10:03 BP 112/80 01/31/24 10:03 Pulse Ox 98 01/31/24 10:03 Oxygen Delivery Method Room Air 01/31/24 10:03 BMI result Body Mass Index 32.6 Tobacco/Smoking Status: Tobacco use Status Tobacco use date assessed 01/31/24 01/31/24 10:08 Patient Tobacco Use Status Never used Tobacco 01/31/24 10:33 e-Cigarette/Vaping Use Never Used 01/31/24 10:33 PHQ-9: PHQ-9 Score PHQ-9: Total score 6 01/31/24 10:32 Depression Screening Interpretation: Positive Thrive Assessment: Date of Thrive Assessment Date Thrive assessed 01/24/24 01/31/24 10:08 Currently or been in a relationship where the following occur: No concerns reported Const General: alert and awake; No confusion Orientation/consciousness: No confusion HENMT Head: Yes normocephalic Ears: external ears normal and TM's normal bilaterally Face and sinus: Yes normal facial exam Mouth: moist mucous membranes Throat: Yes tonsils normal Eyes Conjunctivae: conjunctivae normal Pupils: Equal, round and reactive pupils present and Pupil accommodation reflex normal Direct Ophthalmoscopy: normal light reflex Neck Neck: No lymphadenopathy Thyroid: Thyroid normal Chest Chest palpation & inspection: normal inspection of the chest Resp Effort & Inspection: normal respiratory effort and no audible wheezes Auscultation: clear to auscultation bilaterally, no crackles, no wheezes and lung sounds not diminished Cardio Rate: regular rate Rhythm: regular rhythm Peripheral pulses: radial pulses present and dorsalis pedis present GI Palpation (GI): no masses Auscultation: normal bowel sounds and normoactive bowel sounds Rectal Exam - Female: deferred Skin General skin exam: no rashes or lesions noted Rashes: no rashes Neuro General: deep tendon reflexes 2+ bilaterally and No confusion Cranial nerves: Yes Equal, round and reactive pupils present, Yes Midline tongue present, Yes Normal hearing present and Yes Ability to bilaterally elevate shoulders present Cognition (Neuro): normal cognition Gait exam (Neuro): Normal gait present Motor exam (neuro): 5/5 motor strength present throughout Deep tendon reflexes (DTR's): Right brachioradialis reflex intensity grade: 2+, Left brachioradialis reflex intensity grade: 2+, Right patellar reflex intensity grade: 2+ and Left patellar reflex intensity grade: 2+ Extrem General: No edema Office Procedures Flu Questionnaire Does the patient have a severe egg allergy?: No Immunizations Fluarix Triv [id number] (PF) 45 mcg (15 mcg x 3)/0.5 mL IM syringe Performing Provider: Michael Luis MD [facility] Documented (not given) by: JESSA Wade on 01/31/24 10:08 Reason Not Given: Patient Refused Coding Level of Care Code Est Pt Prev Care 40-64y(64114) Diagnoses Annual physical exam Z00.00 Obesity (BMI 30-39.9) E66.9 Gastroesophageal reflux disease without esophagitis K21.9 Esophagitis presence: without esophagitis Impaired glucose tolerance R73.02 Hypercholesterolemia E78.00 Generalized anxiety disorder F41.1 Breast cancer screening by mammogram Z12.31 Facial rash R21 Migraine without status migrainosus, not intractable, unspecified migraine type G43.909 Migraine type: unspecified Status migrainosus presence: without status migrainosus Intractability: not intractable Assessment & Plan Assessment & Plan (1) Annual physical exam: Code(s): Z00.00 - Encounter for general adult medical examination without abnormal findings Category: Medical Plan: Patient is advised to eat healthy, keep well hydrated, keep active and have adequate sleep. (2) Obesity (BMI 30-39.9): Code(s): E66.9 - Obesity, unspecified Category: Medical Plan: Diet and exercise (3) GERD (gastroesophageal reflux disease): Code(s): K21.9 - Gastro-esophageal reflux disease without esophagitis Category: Medical Qualifiers: Esophagitis presence: without esophagitis Qualified Code(s): K21.9 - Gastro-esophageal reflux disease without esophagitis Plan: Avoid the foods that causes that usually spicy foods, tomato products, juices, coffee, soda and foods that your sensitive to. After eating do not lie down, allow 3-4 hours before in lie down. And keep the head of bed above 30 degrees to avoid the acid from going up. (4) Impaired glucose tolerance: Code(s): R73.02 - Impaired glucose tolerance (oral) Category: Medical Plan: Decrease the amount of carbohydrate intake, pasta, bread, rice and potatoes are all sugar and that is aside from all the sweet stuff, remember that fruits are good but they are Sweet also. (5) Hypercholesterolemia: Code(s): E78.00 - Pure hypercholesterolemia, unspecified Category: Medical Plan: Avoid fried foods, chicken skin, eggs, butter margarine, pastries and meat. Be it pork or beef they have a lot of cholesterol LDL goal of less than 130 and triglyceride of less than 150. (6) Generalized anxiety disorder: Code(s): F41.1 - Generalized anxiety disorder Category: Medical Plan: Continue with present medication as needed (7) Breast cancer screening by mammogram: Code(s): Z12.31 - Encounter for screening mammogram for malignant neoplasm of breast Category: Medical Plan: Patient is reminded about mammogram (8) Facial rash: Code(s): R21 - Rash and other nonspecific skin eruption Category: Medical Plan: Rheumatology referral done (9) Migraine: Code(s): G43.909 - Migraine, unspecified, not intractable, without status migrainosus Category: Medical Qualifiers: Migraine type: unspecified Status migrainosus presence: without status migrainosus Intractability: not intractable Qualified Code(s): G43.909 - Migraine, unspecified, not intractable, without status migrainosus Plan: Patient is advised to eat healthy, keep well hydrated, keep active and have adequate slee Orders: Orders Influenza [id number] Immunization Today Z23 - Encounter for immunization Complete Blood Count Auto Diff Today E78.00 - Pure hypercholesterolemia, unspecified Thyroid Stimulating Hormone Today E78.00 - Pure hypercholesterolemia, unspecified Vitamin B12 and Folate Today E78.00 - Pure hypercholesterolemia, unspecified C Reactive Protein Today R21 - Rash and other nonspecific skin eruption EMANUEL Reflex Titer and Pattern Today R21 - Rash and other nonspecific skin eruption, R79.89 - Other specified abnormal findings of blood chemistry Comprehensive Met. Panel Today E78.00 - Pure hypercholesterolemia, unspecified Free T4 (Free Thyroxine) Today E78.00 - Pure hypercholesterolemia, unspecified Lipid Panel Today E78.00 - Pure hypercholesterolemia, unspecified Vitamin D 25-OH Total Today E78.00 - Pure hypercholesterolemia, unspecified Hemoglobin A1c Today R73.02 - Impaired glucose tolerance (oral) Erythrocyte Sedimentation Rate Today R21 - Rash and other nonspecific skin eruption Medications: New qwyhsofygf-ygpkwvylddzue-wrdu 50-300-40 mg (Fioricet) 1 cap PO Q8H PRN 7 caps 0RF pain G43.909 - Migraine, unspecified, not intractable, without status migrainosus Refilled alprazolam 0.25 mg PO DAILY PRN 30 tabs 0RF anxiety F41.9 - Anxiety disorder, unspecified
[2024-01-31 10:03] VITALS: BP 112/80; PULSE 83; O2SAT 98; BMI 32.6
== END 2024-01-31 10:51 | disposition home or self-care (01) ==
PROVIDERS: PCP Internal Medicine; Visit Provider Internal Medicine
DX: Z00.00 Encounter for general adult medical examination without abnormal findings (principal); E66.811 Obesity, class 1; Z68.32 Body mass index [BMI] 32.0-32.9, adult; K21.9 Gastro-esophageal reflux disease without esophagitis; R73.02 Impaired glucose tolerance (oral); E78.00 Pure hypercholesterolemia, unspecified; F41.1 Generalized anxiety disorder; Z12.31 Encounter for screening mammogram for malignant neoplasm of breast; R21 Rash and other nonspecific skin eruption; G43.909 Migraine, unspecified, not intractable, without status migrainosus; Z23 Encounter for immunization

== ENCOUNTER → 2024-01-31 09:59 | Outpatient (BNVA) | payer OTHER, SELFPAY | PROVIDERS: PCP Internal Medicine; Visit Provider Internal Medicine | DX: Z00.01 Encounter for general adult medical examination with abnormal findings (principal); R21 Rash and other nonspecific skin eruption; K21.9 Gastro-esophageal reflux disease without esophagitis; E66.9 Obesity, unspecified; R73.02 Impaired glucose tolerance (oral); E78.00 Pure hypercholesterolemia, unspecified; F41.1 Generalized anxiety disorder; G43.909 Migraine, unspecified, not intractable, without status migrainosus | CPT/HCPCS: 90471; 96127; 99396 ==

== ENCOUNTER 2024-02-14 08:08 | Outpatient (REF) | payer OTHER, SELFPAY ==
[2024-02-14 08:34] LABS: MANUAL DIFF FLAG NO
[2024-02-14 09:12] LABS: Basophils Percent Auto 0.5 % (0-2); Eosinophils Absolute Auto 0.1 X10*3/uL (0.0-0.4); Eosinophils Percent Auto 1.2 % (0-4); Hematocrit 42.7 % (37.0-47.0); Hemoglobin 14.4 g/dl (12.0-16.0); Imm Gran Abs Auto 0.02 X10*3/uL (0.00-0.03); Imm Gran Pct Auto 0.3 % (0.0-0.4); Lymphocytes Absolute Auto 1.7 X10*3/uL (1.2-4.9); Lymphocytes Percent Auto 25.4 % (20-40); Mean Corpuscular HGB Conc 33.7 g/dl (31.0-35.0); Mean Corpuscular Volume 91.8 fL (80.0-98.0); Mean Platelet Volume 10.6 fL (9.4-12.3); Monocytes Absolute Auto 0.5 X10*3/uL (0.1-1.2); Monocytes Percent Auto 7.4 % (2-11); Neutrophils Absolute Auto 4.2 x10*3/uL (2.0-8.3); Neutrophils Percent Auto 65.2 % (45-73); Platelet Count 242 X10*3/uL (160-400); Red Blood Count 4.65 X10*6/uL (4.20-5.50); White Blood Count 6.5 X10*3/uL (4.8-10.8)
[2024-02-14 09:31] LABS: Estimated Average Glucose 100 mg/dL; Hemoglobin A1C 118.7799 umol/L; Hemoglobin A1c % 5.1 % (<6.0); Total Hemoglobin (HGBA1C) 3675.0295 umol/L
[2024-02-14 09:46] LABS: Alanine Aminotransferase 23 U/L (0-31); Albumin Level 4.6 g/dL (3.5-5.0); Alkaline Phosphatase 58 U/L (39-117); Anion Gap 9 (12-20); Aspartate Amino Transferase 19 U/L (5-31); Bilirubin Total 0.8 mg/dL (0.0-1.0); Blood Urea Nitrogen 8 mg/dL (9-16); C Reactive Protein 0.17 mg/dL (< or = 0.50); Calcium 9.9 mg/dL (8.4-10.2); Carbon Dioxide 28 mmol/L (22-29); Chloride 105 mmol/L (96-108); Cholesterol 198 mg/dL (<200); Estimated Glomerular Filt Rate > 60; Glucose Random 121 mg/dL (60-115); HDL Cholesterol 57 mg/dL (>40); LDL Cholesterol Calculated 125 mg/dL (<100); Sodium 138 mmol/L (135-145); Total Protein 7.1 g/dL (6.5-8.0); Triglycerides 80 mg/dL (<150)
[2024-02-14 09:54] LABS: Erythrocyte Sedimentation Rate 2 MM/HR (0-20)
[2024-02-14 10:07] LABS: Free T4 (Free Thyroxine) 0.94 ng/dL (0.71-1.85); Thyroid Stimulating Hormone 1.17 uIU/mL (0.32-4.0); Vitamin D 25-OH Total 32.9 ng/mL (>30)
[2024-02-14 10:11] LABS: Folate 15.8 ng/mL (> or = 4.0); Vitamin B12 370 pg/mL (200-900)
[2024-02-17 13:33] LABS: Anti Nuclear Antibody Screen NEGATIVE (NEGATIVE)
== END 2024-02-14 08:09 | disposition home or self-care (01) ==
LOC: HO.LAB 08:08
PROVIDERS: PCP Internal Medicine; Visit Provider Internal Medicine
DX: R42 Dizziness and giddiness (principal); E78.00 Pure hypercholesterolemia, unspecified; R21 Rash and other nonspecific skin eruption; R79.89 Other specified abnormal findings of blood chemistry; R73.02 Impaired glucose tolerance (oral); R00.2 Palpitations; M54.2 Cervicalgia
CPT/HCPCS: 36415; 80053; 80061; 82306; 82607; 82746; 83036; 84439; 84443; 85025; 85652; 86038; 86140; 99212

== ENCOUNTER 2024-02-14 09:01 | Outpatient (AMB) | payer OTHER, SELFPAY ==
[2024-02-14 09:07] VITALS: BP 124/80; PULSE 87; O2SAT 97; BMI 31.4
--- NOTE | 2024-02-14 09:07 | AM.OFFWIN_ITS ---
Intake Vital Signs 02/14/24 09:07 Height 5 ft 5 in Weight 189 lb BMI 31.4 BP 124/80 Blood Pressure Location Rt brachial Position Sitting Pulse 87 Pulse Source Pulse Oximeter Pulse Oximetry (%) 97 Oxygen Delivery Method Room Air Intake Visit Reasons: EP-dizziness, headaches, palpitation Intake Note: Patient here for diziness, headaches at base of head, and palpitations that has been present for a few weeks. Patient Tobacco Use Status: Never used Tobacco Allergies amoxicillin [AMOXICILLIN] Allergy (Intermediate, Verified 01/31/24 10:07) HIVES Penicillins Allergy (Intermediate, Verified 01/31/24 10:07) HIVES metronidazole [From FLAGYL] Allergy (Mild, Verified 01/31/24 10:07) HIVES citalopram [Celexa] Allergy (Unknown, Verified 01/31/24 10:07) palpatations oxycodone [Percocet] Adverse Reaction (Unknown, Verified 01/31/24 10:07) stomach upset Do you need a note to return to daycare/school/sports/work: No HPI EP-dizziness, headaches, palpitation HPI Details This note is constructed using voice recognition software. While every effort has been made to ensure accuracy, medical physicist errors may have been included. The patient is a 39 year old female who presents to the clinic today with headache, dizziness, palpitations. Patient reports that the dizziness has been ongoing for the past several weeks, and was discussed with her primary care provider at her last visit a couple of weeks ago. At that time she was prescribed meclizine, which she is taking 25 mg 3 times per day, and it is helping the symptoms just barely make it to the next dose. She reports that the symptoms are worse when she changes position, such as rolling over in bed, or going from sitting to standing. She denies any head trauma, fevers, or other contributing factors. The headaches are posterior, cervical region. She reports that the area feels tight, and when the tightness increase his, she is noticing knots in her trap ezius region, and reduced strength in her arms. She denies any particular injury to the area, no fever, chills. She denies nuchal rigidity. This pain has been intermittent and ongoing for the past week and a half She also notes palpitations, they are intermittent in nature, and she feels that they are worsened by the pain that she is experiencing in her head. She denies chest pain. She recently had lab work done, including thyroid testing this morning. She is concerned that she may have an issue with her thyroid, as she had a recent weight gain of approximately 40 lb after coming off semaglutide. She has a history of anxiety, and does feel that this contributes to her symptoms as well, especially since her mother in her 40s from cardiac- related issues. [facility] Medical History (Updated 01/31/24 @ 19:11 by Michael Luis MD) Annual physical exam ASCUS (atypical squamous cells of undetermined significance) on gynecologic Papanicolaou smear complicating , antepartum Irritable bowel syndrome Varicose veins of both lower extremities Obesity (BMI 30-39.9) PMDD (premenstrual dysphoric disorder) Allergic rhinitis Atypical nevus Migraine Surgical History History of abdominoplasty H/O tubal ligation History of Family History Father Hypercholesterolemia HTN (hypertension) Mother Rheumatoid arteritis Myocardial infarction Paternal Grandfather Diabetes Chronic kidney disease Renal failure Paternal Grandmother Stroke Maternal Grandmother Respiratory illness Stroke Lung cancer Paternal Aunt Colon cancer Sister No problems noted. Son Depression Substance abuse Suicidal ideation Social History (Updated 01/31/24 @ 10:33 by Michael Luis MD) Housing: Apartment Alcohol intake: current Alcohol intake frequency: holidays/special occasions only Alcohol type: wine Comment: once a month glass Patient Tobacco Use Status: Never used Tobacco e-Cigarette/Vaping Use: Never Used Second Hand Smoke Exposure: No service: No Current occupational status: employed Current occupational exposures/hazards: No Cognitive needs: No Hearing needs: No Vision needs: No Review of Systems Const All systems reviewed & are unremarkable except as noted in HPI and below Physical Exam Vital Signs: Last Vital Signs Pulse 87 02/14/24 09:07 BP 124/80 02/14/24 09:07 Pulse Ox 97 02/14/24 09:07 Oxygen Delivery Method Room Air 02/14/24 09:07 BMI result Body Mass Index 31.4 Const General: cooperative, healthy appearing, comfortable, no acute distress and alert Orientation/consciousness: patient oriented x3 Limitations: no limitations HEENT Head: Yes normal to inspection and Yes normocephalic Ears: hearing grossly normal bilaterally General nose exam: Normal external nose present Face and sinus: Yes normal facial exam and Yes sinuses nontender Mouth: Normal oral and palatal mucosa present and tongue normal Teeth and gingiva: dentition normal Throat: Yes posterior oropharynx normal Eyes General: appearance normal, both eyes and all related structures Neck Other: No nuchal rigidity Neck: Yes normal visual inspection, Yes full ROM and Yes no lymphadenopathy Resp Effort & Inspection: normal respiratory effort and able to speak in complete sentences Auscultation: clear to auscultation bilaterally Cardio Jugular venous distension: no JVD Palpation: normal PMI Rate: regular rate Heart sounds: S1 normal heart sound present, S2 normal heart sound present, no click, no gallops, no murmurs and no rubs Back/Spine/Pelvis Other: Increased muscle bulging over cervical region, as well as bilateral trapezius. Skin General skin exam: no rashes or lesions noted, elasticity normal and turgor normal Neuro Other: Horizontal nystagmus present. General: patient oriented x3 Cranial nerves: Yes CN's II-XII intact bilaterally Extrem Other: Full range of motion of neck, spine, and shoulders, arms. Strength 5/5. Distal neurovascular exam intact. General: Yes normal to inspection, Yes full ROM, Yes capillary refill normal and Yes normal exam except as noted Psych Appearance: grossly normal Mental Status: mental status grossly normal Speech and movement: Normal speech and movement present Affect: normal affect Results Reviewed Results Reviewed: EKG normal sinus rhythm. Assessment & Plan Assessment & Plan (1) Vertigo: Code(s): R42 - Dizziness and giddiness Plan: Increase meclizine to max dose for symptomatic management. Advised trial of half somersault maneuver. May benefit from vestibular physical therapy. Additionally discussed potential that she may need imaging should symptoms persist or worsen. Advised ER with vertigo that is constant (2) Palpitations: Code(s): R00.2 - Palpitations Plan: In office EKG appears normal sinus rhythm. Has labs pending today including C BC, thyroid studies. Advised follow up with PCP for ongoing symptoms as she may benefit from a Holter monitor for additional workup. No clear and obvious source today. Advised ER with symptoms that are persistent, do not stop, or involve chest pain. (3) Cervical pain (neck): Code(s): M54.2 - Cervicalgia Plan: Advised NSAIDs, heat/ice, rest. HEP discussed. Trial muscle relaxers for symptomatic management. Advised follow up with worsening or failure to resolve. Plan See above for full details and plan. Medications: New cyclobenzaprine 5 mg PO Q8H 3 days PRN 9 tabs 0RF Muscle Spasm Changed From meclizine 25 mg PO TID PRN 90 tabs 0RF dizziness To meclizine 1 to 2 orally 3 times a day PRN; 90 tabs 0RF dizziness Coding Level of Care Code Est Pt Level 4 (98493) Diagnoses Vertigo R42 Palpitations R00.2 Cervical pain (neck) M54.2 Time Spent (min) 25
== END 2024-02-14 09:57 | disposition home or self-care (01) ==
PROVIDERS: PCP Internal Medicine; Visit Provider Registered Nurse
DX: R42 Dizziness and giddiness (principal); R00.2 Palpitations; M54.2 Cervicalgia

== ENCOUNTER 2024-03-07 11:17 | Outpatient (AMB) | payer OTHER, SELFPAY ==
--- NOTE | 2024-03-07 11:20 | MHC.PC.OV ---
Vital Signs 03/07/24 11:22 Height 5 ft 5 in Weight 202 lb 4 oz BMI 33.7 BP 110/72 Blood Pressure Location Lt brachial Position Sitting Pulse 102 H Pulse Source Pulse Oximeter Pulse Oximetry (%) 98 Oxygen Delivery Method Room Air Intake Visit Reasons: Dizziness, headaches and palpitations Intake Note: Patient is here to follow up on Dizziness, Headaches and Palpitations. f/u from [facility] on 02/14/24. Pt decline flu shot today. Teacher Aide Required: No Teletype Or [place] Keyboard Operator: Not Required per policy Accompanied by: Self / Same As Patient Allergies amoxicillin [AMOXICILLIN] Allergy (Intermediate, Verified 03/07/24 11:21) HIVES Penicillins Allergy (Intermediate, Verified 03/07/24 11:21) HIVES metronidazole [From FLAGYL] Allergy (Mild, Verified 03/07/24 11:21) HIVES citalopram [Celexa] Allergy (Unknown, Verified 03/07/24 11:21) palpatations oxycodone [Percocet] Adverse Reaction (Unknown, Verified 03/07/24 11:21) stomach upset Tobacco use date assessed: 03/07/24 Dental Screening Dental Screen Date: 01/31/24 HPI Dizziness, headaches and palpitations HPI Details 39-year-old obese female with GERD impaired glucose tolerance hypercholesterolemia generalized anxiety disorder migraine coming in for follow-up. Last seen in 01/31/2024 for physical exam. Patient is here for an acute problem. Review of the notes February 13 was in the [facility]gent [facility] complain of dizziness headaches and palpitations diagnosis and treatment meclizine recommending vestibular physical therapy as for the palpitations normal sinus rhythm.PAtient is feeling flushing with facial rash , feels having palpitations also and occ sob [facility] Medical History (Updated 03/07/24 @ 12:00 by Michael Luis MD) Annual physical exam ASCUS (atypical squamous cells of undetermined significance) on gynecologic Papanicolaou smear complicating , antepartum Irritable bowel syndrome Varicose veins of both lower extremities Obesity (BMI 30-39.9) PMDD (premenstrual dysphoric disorder) Allergic rhinitis Atypical nevus Migraine Surgical History History of abdominoplasty H/O tubal ligation History of Family History Father Hypercholesterolemia HTN (hypertension) Mother Rheumatoid arteritis Myocardial infarction Paternal Grandfather Diabetes Chronic kidney disease Renal failure Paternal Grandmother Stroke Maternal Grandmother Respiratory illness Stroke Lung cancer Paternal Aunt Colon cancer Sister No problems noted. Son Depression Substance abuse Suicidal ideation Social History Housing: Apartment Alcohol intake: current Alcohol intake frequency: holidays/special occasions only Alcohol type: wine Comment: once a month glass Patient Tobacco Use Status: Never used Tobacco e-Cigarette/Vaping Use: Never Used Second Hand Smoke Exposure: No service: No Current occupational status: employed Current occupational exposures/hazards: No Cognitive needs: No Hearing needs: No Vision needs: No Questionnaire Thrive Questionnaire Date Thrive assessed: 01/24/24 I am a: Patient What is your living situation today?: I have a steady place to live Within the past 12 months, did the food you bought not last and you didn't have the money to get more?: Never true Within the past 12 months, did you worry whether your food would run out before you got money to buy more?: Never true Do you have trouble paying for medicines?: No Do you have trouble getting transportation to medical appointments?: No Do you have trouble paying your heating and electricity bill?: No Do you have trouble taking care of your child, family member or friend?: No Do you have trouble with day-to-day activities such as bathing, preparing meals, shopping, managing finances, etc.?: No Are you currently unemployed and looking for a job?: No Are you interested in more education?: No Please select the resources that you would like help with: None Currently or been in a relationship where the following occur: No concerns reported THRIVE Score: 0 JAKE-7 AMB Questionnaire JAKE-7 Date JAKE - 7 assessed: 01/31/24 Source: Developed by Drs. Sheldon Key, Ginger Ugalde, Eliseo Aguirre and colleagues, with an educational cassi from [employer]. Physical exam (Primary Care) Vital Signs: Last Vital Signs Pulse 102 H 03/07/24 11:22 BP 110/72 03/07/24 11:22 Pulse Ox 98 03/07/24 11:22 Oxygen Delivery Method Room Air 03/07/24 11:22 BMI result Body Mass Index 33.7 Tobacco/Smoking Status: Tobacco use Status Tobacco use date assessed 03/07/24 03/07/24 11:25 Patient Tobacco Use Status Never used Tobacco 03/07/24 11:25 e-Cigarette/Vaping Use Never Used 03/07/24 11:25 Thrive Assessment: Date of Thrive Assessment Date Thrive assessed 01/24/24 03/07/24 11:25 Currently or been in a relationship where the following occur: No concerns reported Const General: alert; No acute distress Eyes Conjunctivae: conjunctivae normal Resp Auscultation: clear to auscultation bilaterally Cardio Rate: regular rate Rhythm: regular rhythm GI Inspection: Yes normal to inspection Skin Other: Noted flushing/erythema toes discoloration of the face with sparing of the orbits. Extrem General: Yes normal to inspection and No edema Coding Level of Care Code Est Pt Level 4 (01503) Diagnoses Obesity (BMI 30-39.9) E66.9 Vertigo of central origin H81.4 Hypercholesterolemia E78.00 Flushing R23.2 Peripheral vascular disease I73.9 Neck pain M54.2 Assessment & Plan Assessment & Plan (1) Obesity (BMI 30-39.9): Code(s): E66.9 - Obesity, unspecified Category: Medical Plan: Diet and exercise. (2) Vertigo of central origin: Code(s): H81.4 - Vertigo of central origin Category: Medical Plan: Patient has been placed on meclizine and will discuss about vestibular physical therapy. Will hold from this and do workup. (3) Hypercholesterolemia: Code(s): E78.00 - Pure hypercholesterolemia, unspecified Category: Medical Plan: Cholesterol numbers are better (4) Flushing: Code(s): R23.2 - Flushing Category: Medical Plan: Blood work requested for hormones and sedimentation rate (5) Peripheral vascular disease: Code(s): I73.9 - Peripheral vascular disease, unspecified Category: Medical Plan: When sitting down elevate the legs, exercise, and support stockings prescription for support stockings given (6) Neck pain: Code(s): M54.2 - Cervicalgia Category: Medical Plan: X-ray requested Orders: Orders Follicle Stimulating Hormone Today R23.2 - Flushing Prolactin Today R23.2 - Flushing Erythrocyte Sedimentation Rate Today R23.2 - Flushing C Reactive Protein Today R23.2 - Flushing Estrogen Today R23.2 - Flushing Lutenizing Hormone Today R23.2 - Flushing XR cervical spine 3V Today M54.2 - Cervicalgia EMANUEL Reflex Titer and Pattern Today M54.2 - Cervicalgia, R79.89 - Other specified abnormal findings of blood chemistry Medications: New compress.stocking,knee,reg,lrg As directed 20-30 mm HG 12 ea 0RF I73.9 - Peripheral vascular disease, unspecified compr.stocking,thigh,reg,large As directed 20-30 mm HG 4 ea 0RF I73.9 - Peripheral vascular disease, unspecified
[2024-03-07 11:22] VITALS: BP 110/72; PULSE 102; O2SAT 98; BMI 33.7
== END 2024-03-07 12:25 | disposition home or self-care (01) ==
PROVIDERS: PCP Internal Medicine; Visit Provider Internal Medicine
DX: H81.4 Vertigo of central origin (principal); I73.9 Peripheral vascular disease, unspecified; E66.9 Obesity, unspecified; Z68.33 Body mass index [BMI] 33.0-33.9, adult; E78.00 Pure hypercholesterolemia, unspecified; R23.2 Flushing; M54.2 Cervicalgia

== ENCOUNTER 2024-03-07 11:17 | Outpatient (REF) | payer OTHER, SELFPAY ==
--- NOTE | ~2024-03-07 | XR_ITS ---
EXAMINATION: XR CERVICAL SPINE CLINICAL INFORMATION: M54.2 - Cervicalgia COMPARISON: Cervical spine 02/13/2018 TECHNIQUE: 3 views of the cervical spine were obtained. FINDINGS: Some minimal degenerative changes are present in the cervical spine with some predominantly endplate changes and small osteophytes. Vertebral body heights and disc spaces are well preserved. No soft tissue swelling, fractures or subluxations. XR/XR cervical spine 3V IMPRESSION: Minimal degenerative changes in the cervical spine. Electronically signed by: Agustin Antony MD 04/01/2024 05:56 PM EST YUSUF
[2024-03-07 13:39] LABS: C Reactive Protein 0.11 mg/dL (< or = 0.50)
[2024-03-07 14:01] LABS: Erythrocyte Sedimentation Rate 2 MM/HR (0-20)
[2024-03-09 07:14] LABS: Follicle Stimulating Hormone 7.4 mIU/mL; Lutenizing Hormone 14.4 mIU/mL; Prolactin 6.1 ng/mL
[2024-03-13 11:34] LABS: Anti Nuclear Antibody Screen NEGATIVE (NEGATIVE)
[2024-03-13 21:38] LABS: Estrogen 1991 pg/mL
== END 2024-03-07 11:18 | disposition home or self-care (01) ==
LOC: HO.XRAY 11:17
PROVIDERS: PCP Internal Medicine; Visit Provider Internal Medicine
DX: E66.9 Obesity, unspecified (principal); Z68.33 Body mass index [BMI] 33.0-33.9, adult; H81.4 Vertigo of central origin; E78.00 Pure hypercholesterolemia, unspecified; R23.2 Flushing; I73.9 Peripheral vascular disease, unspecified; M54.2 Cervicalgia; R79.89 Other specified abnormal findings of blood chemistry
CPT/HCPCS: 36415; 72040; 82672; 83001; 83002; 84146; 85652; 86038; 86140; 99212

== ENCOUNTER 2024-10-10 16:14 | Outpatient (AMB) | payer OTHER, SELFPAY ==
[2024-10-10 16:51] VITALS: BP 106/70; PULSE 92; TEMP 36.3; O2SAT 98; BMI 29.5
--- NOTE | 2024-10-10 16:51 | A.OFFPC_ITS ---
Vital Signs 10/10/24 16:51 Height 5 ft 5 in Weight 177 lb 6 oz BMI 29.5 BP 106/70 Blood Pressure Location Lt brachial Position Sitting Pulse 92 Pulse Source Pulse Oximeter Temp 97.3 F Temp Source Temporal Artery Scan Pulse Oximetry (%) 98 Oxygen Delivery Method Room Air Intake Visit Reasons: Neck pain Allergies amoxicillin [AMOXICILLIN] Allergy (Intermediate, Verified 03/07/24 11:21) HIVES Penicillins Allergy (Intermediate, Verified 03/07/24 11:21) HIVES metronidazole [From FLAGYL] Allergy (Mild, Verified 03/07/24 11:21) HIVES citalopram [Celexa] Allergy (Unknown, Verified 03/07/24 11:21) palpatations oxycodone [Percocet] Adverse Reaction (Unknown, Verified 03/07/24 11:21) stomach upset Medication List - Last Reconciled 10/10/24 by Michael Huntley Po, alprazolam 0.25 mg PO DAILY PRN snbjubncet-fpntzbwisckzm-ifnp 50-300-40 mg (Fioricet) 1 cap PO Q8H PRN cholecalciferol (vitamin D3) 50 mcg PO DAILY compr.stocking,thigh,reg,large As directed 20-30 mm HG compress.stocking,knee,reg,lrg As directed 20-30 mm HG cyclobenzaprine 5 mg (1/2 x 10 mg) PO Q8H PRN 30 days diphenhydramine HCl (Benadryl Allergy) 25 mg PO Q6H PRN famotidine 40 mg PO BEDTIME 90 days lactobacillus combination no.8 (Adult Probiotic) 3,000 mmu cells PO DAILY loratadine (Allergy Relief (loratadine)) 10 mg PO DAILY 90 days meclizine 1 to 2 orally 3 times a day PRN; promethazine 25 mg PO Q4-6H PRN Tobacco use date assessed: 03/07/24 Dental Screening Dental Screen Date: 01/31/24 HPI Neck pain HPI Details complains also of trmors of the Upper extremety and [place]. Patient complains of having headaches and this has been going on for more than 3 months already with tremors developing and patient complains of this getting worse. Also as far as the cervical neck pain patient has been sent for physical therapy which has not resolved in this time with radiation to the right extremity. Concern about radicular pain will order for an MRI of the cervical spine. As for weight loss patient has been getting Ozempic but has told already as the dose has remained the same with no more/further workup weight loss. Patient is problematic about the the cost and discussed with the patient to look into getting the vials instead. [facility] Medical History (Updated 10/10/24 @ 17:27 by Michael Luis MD) Annual physical exam ASCUS (atypical squamous cells of undetermined significance) on gynecologic Papanicolaou smear complicating , antepartum Irritable bowel syndrome Varicose veins of both lower extremities Obesity (BMI 30-39.9) PMDD (premenstrual dysphoric disorder) Allergic rhinitis Atypical nevus Migraine Surgical History History of abdominoplasty H/O tubal ligation History of Family History Father Hypercholesterolemia HTN (hypertension) Mother Rheumatoid arteritis Myocardial infarction Paternal Grandfather Diabetes Chronic kidney disease Renal failure Paternal Grandmother Stroke Maternal Grandmother Respiratory illness Stroke Lung cancer Paternal Aunt Colon cancer Sister No problems noted. Son Depression Substance abuse Suicidal ideation Social History Housing: Apartment Alcohol intake: current Alcohol intake frequency: holidays/special occasions only Alcohol type: wine Comment: once a month glass Patient Tobacco Use Status: Never used Tobacco e-Cigarette/Vaping Use: Never Used Second Hand Smoke Exposure: No service: No Current occupational status: employed Current occupational exposures/hazards: No Cognitive needs: No Hearing needs: No Vision needs: No Questionnaire PHQ-9 Over the last 2 weeks, how often have you been bothered by any of the following problems? 1. Little interest or pleasure in doing things: several days 2. Feeling down, depressed, or hopeless: several days 3. Trouble falling or staying asleep, or sleeping too much: several days 4. Feeling tired or having little energy: more than half the days 5. Poor appetite or overeating: not at all 6. Feeling bad about yourself - or that you are a failure or have let yourself or your family down: several days 7. Trouble concentrating on things, such as reading the newspaper or watching television: not at all 8. Moving or speaking so slowly that other people could have noticed. Or the opposite - being so fidgety or restless that you have been moving around a lot more than usual: not at all 9. Thoughts that you would be better off or of hurting yourself in some way: not at all Total score: 6 Source: Developed by Drs. Sheldon Key, Ginger Ugalde, Eliseo Aguirre and colleagues, with an educational cassi from [employer]. Thrive Questionnaire Date Thrive assessed: 10/08/24 I am a: Patient What is your living situation today?: I have a steady place to live Within the past 12 months, did the food you bought not last and you didn't have the money to get more?: Never true Within the past 12 months, did you worry whether your food would run out before you got money to buy more?: Never true Do you have trouble paying for medicines?: No Do you have trouble getting transportation to medical appointments?: No Do you have trouble paying your heating and electricity bill?: No Do you have trouble taking care of your child, family member or friend?: No Do you have trouble with day-to-day activities such as bathing, preparing meals, shopping, managing finances, etc.?: No Are you currently unemployed and looking for a job?: No Are you interested in more education?: No Please select the resources that you would like help with: None Currently or been in a relationship where the following occur: I choose not to answer THRIVE Score: 0 AUDIT C Alcohol Use Questionnaire (AUDIT-C) 1. How often do you have a drink containing alcohol?: Monthly or less 2. How many drinks containing alcohol do you have on a typical day when you are drinking?: 1 or 2 3. How often do you have six or more drinks on one occasion?: Never Total Score: 1 JAKE-7 AMB Questionnaire JAKE-7 Date JAKE - 7 assessed: 01/31/24 Feeling nervous, anxious, or on edge: 3 = Nearly every day Not being able to stop or control worryin = Several days Worrying too much about different things: 1 = Several days Trouble relaxin = Nearly every day Being so restless that it is hard to sit still: 1 = Several days Becoming easily annoyed or irritable: 3 = Nearly every day Feeling afraid as if something awful might happen: 1 = Several days Total JAKE-7 score (0-4 normal; 5-9 mild; 10-14 moderate; 15-21 severe): 13 Source: Developed by Drs. Sheldon Key, Ginger Ugalde, Eliseo Aguirre and colleagues, with an educational cassi from [employer]. Physical exam (Primary Care) Vital Signs: Last Vital Signs Temp 97.3 F 10/10/24 16:51 Pulse 92 10/10/24 16:51 BP 106/70 10/10/24 16:51 Pulse Ox 98 10/10/24 16:51 Oxygen Delivery Method Room Air 10/10/24 16:51 BMI result Body Mass Index 29.5 Tobacco/Smoking Status: Tobacco use Status Tobacco use date assessed 03/07/24 10/10/24 16:54 Patient Tobacco Use Status Never used Tobacco 10/10/24 16:54 e-Cigarette/Vaping Use Never Used 10/10/24 16:54 PHQ-9: PHQ-9 Score PHQ-9: Total score 6 10/10/24 17:21 Thrive Assessment: Date of Thrive Assessment Date Thrive assessed 10/08/24 10/10/24 16:54 Currently or been in a relationship where the following occur: I choose not to answer Const General: alert; No acute distress Eyes Conjunctivae: conjunctivae normal Resp Auscultation: clear to auscultation bilaterally Cardio Rate: regular rate Rhythm: regular rhythm GI Inspection: Yes normal to inspection Extrem General: Yes normal to inspection and No edema Coding Level of Care Code Est Pt Prev Care 40-64y(34010) Diagnoses Atypical nevus of abdominal wall D22.5 Overweight (BMI 25.0-29.9) E66.3 Gastroesophageal reflux disease without esophagitis K21.9 Esophagitis presence: without esophagitis Impaired glucose tolerance R73.02 Generalized anxiety disorder F41.1 Headache R51.9 Neck pain M54.2 Assessment & Plan Assessment & Plan (1) Atypical nevus of abdominal wall: Code(s): D22.5 - Melanocytic nevi of trunk Category: Medical Plan: Patient was seen by the surgeon and planned wide excision. Which was done and healing incisional scar. (2) Overweight (BMI 25.0-29.9): Code(s): E66.3 - Overweight Category: Medical Plan: Diet and exercise (3) GERD (gastroesophageal reflux disease): Code(s): K21.9 - Gastro-esophageal reflux disease without esophagitis Category: Medical Qualifiers: Esophagitis presence: without esophagitis Qualified Code(s): K21.9 - Gastro-esophageal reflux disease without esophagitis Plan: Avoid the foods that causes that usually spicy foods, tomato products, juices, coffee, soda and foods that your sensitive to. After eating do not lie down, allow 3-4 hours before in lie down. And keep the head of bed above 30 degrees to avoid the acid from going up. (4) Impaired glucose tolerance: Code(s): R73.02 - Impaired glucose tolerance (oral) Category: Medical Plan: Decrease the amount of carbohydrate intake, pasta, bread, rice and potatoes are all sugar and that is aside from all the sweet stuff, remember that fruits are good but they are Sweet also. (5) Generalized anxiety disorder: Code(s): F41.1 - Generalized anxiety disorder Category: Medical (6) Headache: Code(s): R51.9 - Headache, unspecified Category: Medical (7) Neck pain: Code(s): M54.2 - Cervicalgia Category: Medical Plan: PAtient continues to have neck pain despite Physical therapy > 3 months. pain med is not really helping and pain radiates to the R shoulder and arm Plan History of Present Illness The patient is a 39-year-old female presenting for follow-up of multiple chronic conditions including GERD, impaired glucose tolerance, generalized anxiety disorder, and hypercholesterolemia. The patient has a history of GERD, which has been managed with lifestyle modifications and medications. She also has impaired glucose tolerance, with previous blood work showing elevated blood sugar but normal hemoglobin A1c levels. The patient has been diagnosed with generalized anxiety disorder, which is being monitored. The patient has hypercholesterolemia, which is currently under control with normal cholesterol levels noted in the last blood work. She has experienced a significant weight loss of 24 pounds, previously managed with medications such as Ozempic, but discontinued due to cost and insurance issues. The patient was seen by a surgeon for an atypical nevus on the abdomen, which was biopsied and found to have atypical cells. A wide excision was planned and completed, with all borders clear of dysplastic cells. The patient reports neck pain and tremors, which have been persistent and are affecting her daily activities. She is undergoing physical therapy and has had x-rays of the neck, with a request for MRI to further evaluate the cervical spine and head due to ongoing symptoms. The patient also experiences migraines, which are debilitating and have prompted consideration of further imaging studies. Health Maintenance - Mammogram is up to date Social History - Weight management: Patient has lost 24 pounds, previously using medications such as Ozempic, but discontinued due to cost and insurance issues. Review of Systems - Neurological: Reports neck pain and tremors. Reports debilitating migraines. Physical Exam Results - Labs: Elevated blood sugar, normal hemoglobin A1c, normal cholesterol levels. - Procedures: Shave biopsy of atypical nevus with atypical cells, followed by wide excision with clear borders. Plan The patient will continue management of GERD with lifestyle modifications and medications as previously prescribed. For impaired glucose tolerance, regular monitoring of blood sugar levels will be maintained, with dietary adjustments as needed. Generalized anxiety disorder will continue to be monitored, with adjustments to therapy as necessary. Hypercholesterolemia management will continue with regular lipid profile assessments to ensure levels remain within normal limits. The patient will be referred for MRI of the cervical spine and head to further evaluate neck pain and tremors. A CAT scan of the head will be conducted to assess for any underlying causes of migraines. The patient is advised to continue physical therapy for neck pain and to avoid excessive use of massagers to prevent skin injury. Medication adjustments will be made to address muscle spasms, with caution advised regarding potential side effects such as drowsiness. Patient was informed and verbally consented to the use of an ambient scribe for clinic note documentation during this visit. Discussion Notes During the visit, we discussed the management of GERD, impaired glucose tolerance, generalized anxiety disorder, and hypercholesterolemia. We reviewed the need for MRI and CAT scan to further evaluate neck pain, tremors, and migrai kimmy. The patient was informed about the potential side effects of increased medication dosage for muscle spasms and advised on the importance of continuing physical therapy. Patient Instructions - Continue lifestyle modifications and medications for GERD. - Monitor blood sugar levels regularly and adjust diet as needed. - Attend scheduled MRI and CAT scan appointments. - Continue physical therapy for neck pain and avoid excessive use of massagers. - Be cautious of drowsiness with increased medication dosage for muscle spasms. Orders: Orders CT head/brain wo IV con Today R51.9 - Headache, unspecified Complete Blood Count Auto Diff Today R51.9 - Headache, unspecified Comprehensive Met. Panel Today R51.9 - Headache, unspecified Free T4 (Free Thyroxine) Today R51.9 - Headache, unspecified Hemoglobin A1c Today R51.9 - Headache, unspecified Thyroid Stimulating Hormone Today R51.9 - Headache, unspecified Uric Acid Today R51.9 - Headache, unspecified MR cervical spine wo con Today M54.2 - Cervicalgia Vitamin B12 and Folate Today R51.9 - Headache, unspecified Vitamin D 25-OH Total Today R51.9 - Headache, unspecified Lipid Panel Today E78.00 - Pure hypercholesterolemia, unspecified, R51.9 - Headache, unspecified Magnesium Today R51.9 - Headache, unspecified Medications: Changed From cyclobenzaprine 5 mg PO Q8H 3 days PRN 9 tabs 0RF Muscle Spasm R51.9 - Headache, unspecified To cyclobenzaprine 5 mg (1/2 x 10 mg) PO Q8H PRN 45 tabs 0RF Muscle Spasm 30 days R51.9 - Headache, unspecified
== END 2024-10-10 17:34 | disposition home or self-care (01) ==
LOC: HO.HMCH 16:15
PROVIDERS: PCP Internal Medicine; Visit Provider Internal Medicine
DX: Z00.00 Encounter for general adult medical examination without abnormal findings (principal); D22.5 Melanocytic nevi of trunk; E66.3 Overweight; K21.9 Gastro-esophageal reflux disease without esophagitis; R73.02 Impaired glucose tolerance (oral); F41.1 Generalized anxiety disorder; R51.9 Headache, unspecified; M54.2 Cervicalgia

== ENCOUNTER → 2024-10-10 16:14 | Outpatient (BNVA) | payer OTHER, SELFPAY | PROVIDERS: PCP Internal Medicine; Visit Provider Internal Medicine | DX: M54.2 Cervicalgia (principal); R25.1 Tremor, unspecified; R51.9 Headache, unspecified; E66.3 Overweight; K21.9 Gastro-esophageal reflux disease without esophagitis; R73.02 Impaired glucose tolerance (oral); F41.1 Generalized anxiety disorder; E78.00 Pure hypercholesterolemia, unspecified; Z68.29 Body mass index [BMI] 29.0-29.9, adult | CPT/HCPCS: 99396 ==

== ENCOUNTER → 2024-10-28 18:32 | Outpatient (BNV) | payer OTHER, SELFPAY | PROVIDERS: PCP Internal Medicine; Visit Provider Student in an Organized Health Care Education/Training Program | DX: M47.812 Spondylosis without myelopathy or radiculopathy, cervical region (principal) | CPT/HCPCS: 72141 ==

== ENCOUNTER 2024-10-28 18:35 | Outpatient (REF) | payer OTHER, SELFPAY ==
--- NOTE | ~2024-10-28 | MR_ITS ---
CLINICAL HISTORY: M54.2 - Cervicalgia MR cervical spine without gadolinium Comparison: None provided Findings: Vertebral alignment is within normal limits. No significant degenerative changes. Mild multilevel spondylosis, with degenerative disc desiccation, disc height loss, posterior disc osteophyte complex, most notably at C4-C5 and C5-C6 levels causing moderate effacement of the left lateral recess and left neural foramina. No acute fractures or pathologic bone lesions. Visualized intracranial contents are unremarkable. Soft tissues of the neck are normal. Cervical cord normal size and signal. IMPRESSION: No acute findings. Moderate spondylosis at C4-C5 and C5-C6 levels with moderate effacement of the left lateral recess and left neural foramina. This document has been electronically signed by: Nita Jacob MD on 10/29/2024 22:18:32
== END 2024-10-28 18:36 | disposition home or self-care (01) ==
LOC: HO.MRI 18:35
PROVIDERS: PCP Internal Medicine; Visit Provider Internal Medicine
DX: M54.2 Cervicalgia (principal)
CPT/HCPCS: 72141

== ENCOUNTER 2025-02-05 11:03 | Outpatient (AMB) | payer OTHER, SELFPAY ==
[2025-02-05 11:15] VITALS: BP 120/76; PULSE 91; TEMP 36.3; O2SAT 98; BMI 31.2
--- NOTE | 2025-02-05 11:15 | MHC.PC.OV ---
Vital Signs 02/05/25 11:15 Height 5 ft 5 in Weight 187 lb 8 oz BMI 31.2 BP 120/76 Blood Pressure Location Lt brachial Position Sitting Pulse 91 Pulse Source Pulse Oximeter Temp 97.3 F Temp Source Temporal Artery Scan Pulse Oximetry (%) 98 Oxygen Delivery Method Room Air Intake Visit Reasons: annual exam PHQ-9 needed. Allergies amoxicillin (AMOXICILLIN) Allergy (Intermediate, Verified 02/05/25 11:16) HIVES Penicillins Allergy (Intermediate, Verified 02/05/25 11:16) HIVES metronidazole (From FLAGYL) Allergy (Mild, Verified 02/05/25 11:16) HIVES citalopram (Celexa) Allergy (Unknown, Verified 02/05/25 11:16) palpatations oxycodone (Percocet) Adverse Reaction (Unknown, Verified 02/05/25 11:16) stomach upset Medication List - Last Reconciled 02/05/25 by Michael Huntley Po, alprazolam 0.25 mg PO DAILY PRN korwigttvq-tmzpmzqvuinzn-uody 50-300-40 mg (Fioricet) 1 cap PO Q8H PRN cholecalciferol (vitamin D3) 50 mcg PO DAILY compr.stocking,thigh,reg,large As directed 20-30 mm HG compress.stocking,knee,reg,lrg As directed 20-30 mm HG cyclobenzaprine 5 mg (1/2 x 10 mg) PO Q8H PRN 30 days diphenhydramine HCl (Benadryl Allergy) 25 mg PO Q6H PRN famotidine 40 mg PO BEDTIME 90 days lactobacillus combination no.8 (Adult Probiotic) 3,000 mmu cells PO DAILY loratadine (Allergy Relief (loratadine)) 10 mg PO DAILY 90 days meclizine 1 to 2 orally 3 times a day PRN; promethazine 25 mg PO Q4-6H PRN Tobacco use date assessed: 02/05/25 Dental Screening Dental Screen Date: 02/05/25 Did you have a dental visit in the last 12 months?: Yes Did you have a dental problem in the last 6 months where you did not have access to dental care?: No Was dental information given to patient?: Patient has dentist HPI annual exam PHQ-9 needed. HPI Details dizzy [facility] Medical History Annual physical exam ASCUS (atypical squamous cells of undetermined significance) on gynecologic Papanicolaou smear complicating , antepartum Irritable bowel syndrome Varicose veins of both lower extremities Obesity (BMI 30-39.9) PMDD (premenstrual dysphoric disorder) Allergic rhinitis Atypical nevus Migraine Surgical History History of abdominoplasty H/O tubal ligation History of Family History Father Hypercholesterolemia HTN (hypertension) Mother Rheumatoid arteritis Myocardial infarction Paternal Grandfather Diabetes Chronic kidney disease Renal failure Paternal Grandmother Stroke Maternal Grandmother Respiratory illness Stroke Lung cancer Paternal Aunt Colon cancer Sister No problems noted. Son Depression Substance abuse Suicidal ideation Social History Housing: Apartment Alcohol intake: current Alcohol intake frequency: holidays/special occasions only Alcohol type: wine Comment: once a month glass Patient Tobacco Use Status: Never used Tobacco e-Cigarette/Vaping Use: Never Used Second Hand Smoke Exposure: No service: No Current occupational status: employed Current occupational exposures/hazards: No Cognitive needs: No Hearing needs: No Vision needs: No Questionnaire PHQ-9 Over the last 2 weeks, how often have you been bothered by any of the following problems? 1. Little interest or pleasure in doing things: several days 2. Feeling down, depressed, or hopeless: several days 3. Trouble falling or staying asleep, or sleeping too much: several days 4. Feeling tired or having little energy: more than half the days 5. Poor appetite or overeating: not at all 6. Feeling bad about yourself - or that you are a failure or have let yourself or your family down: several days 7. Trouble concentrating on things, such as reading the newspaper or watching television: not at all 8. Moving or speaking so slowly that other people could have noticed. Or the opposite - being so fidgety or restless that you have been moving around a lot more than usual: not at all 9. Thoughts that you would be better off or of hurting yourself in some way: not at all Total score: 6 Depression Screening Interpretation: Positive Depression Screening Done: Yes 21890 - PHQ-9 Billing: Yes Source: Developed by Drs. Sheldon Key, Ginger Ugalde, Elieso Aguirre and colleagues, with an educational cassi from [facility]. Thrive Questionnaire Date Thrive assessed: 10/08/24 I am a: Patient What is your living situation today?: I have a steady place to live Within the past 12 months, did the food you bought not last and you didn't have the money to get more?: Never true Within the past 12 months, did you worry whether your food would run out before you got money to buy more?: Never true Do you have trouble paying for medicines?: No Do you have trouble getting transportation to medical appointments?: No Do you have trouble paying your heating and electricity bill?: No Do you have trouble taking care of your child, family member or friend?: No Do you have trouble with day-to-day activities such as bathing, preparing meals, shopping, managing finances, etc.?: No Are you currently unemployed and looking for a job?: No Are you interested in more education?: No Please select the resources that you would like help with: None Currently or been in a relationship where the following occur: I choose not to answer THRIVE Score: 0 AUDIT C Alcohol Use Questionnaire (AUDIT-C) 1. How often do you have a drink containing alcohol?: Monthly or less 2. How many drinks containing alcohol do you have on a typical day when you are drinking?: 1 or 2 3. How often do you have six or more drinks on one occasion?: Never Total Score: 1 JAKE-7 AMB Questionnaire JAKE-7 Date JAKE - 7 assessed: 02/05/25 Feeling nervous, anxious, or on edge: 3 = Nearly every day Not being able to stop or control worryin = Several days Worrying too much about different things: 1 = Several days Trouble relaxin = Nearly every day Being so restless that it is hard to sit still: 1 = Several days Becoming easily annoyed or irritable: 3 = Nearly every day Feeling afraid as if something awful might happen: 1 = Several days Total JKAE-7 score (0-4 normal; 5-9 mild; 10-14 moderate; 15-21 severe): 13 Source: Developed by Drs. Sheldon Key, Ginger Ugalde, Eliseo Aguirre and colleagues, with an educational cassi from [facility]. JAKE-7 Assessment Billing JAKE-7 Assessment Tool: JAKE-7 Assessment 57452 Review of Systems Const Denies poor appetite and Denies weakness Eyes Denies no additional complaints ENT Reports Normal hearing present, Denies dizziness, Denies nasal congestion, Denies tinnitus and Denies sore throat Card Denies chest pain, Denies syncope, Denies rapid heart rate and Denies dyspnea Resp Denies cough and Denies dyspnea GI Denies change in stool character, Reports constipation, Denies diarrhea, Denies nausea and Denies vomiting Denies urinary frequency, Denies difficulty voiding and Denies dysuria Neuro Reports Normal hearing present, Denies confusion, Denies dizziness, Denies syncope and Denies weakness Psych Denies confusion Physical exam (Primary Care) Vital Signs: Last Vital Signs Temp 97.3 F 02/05/25 11:15 Pulse 91 02/05/25 11:15 BP 120/76 02/05/25 11:15 Pulse Ox 98 02/05/25 11:15 Oxygen Delivery Method Room Air 02/05/25 11:15 BMI result Body Mass Index 31.2 Tobacco/Smoking Status: Tobacco use Status Tobacco use date assessed 02/05/25 02/05/25 11:17 Patient Tobacco Use Status Never used Tobacco 02/05/25 11:17 e-Cigarette/Vaping Use Never Used 02/05/25 11:17 PHQ-9: PHQ-9 Score PHQ-9: Total score 6 02/05/25 12:09 Depression Screening Interpretation: Positive Thrive Assessment: Date of Thrive Assessment Date Thrive assessed 10/08/24 02/05/25 11:17 Currently or been in a relationship where the following occur: I choose not to answer Const General: No confusion Orientation/consciousness: No confusion HENMT Head: Yes normocephalic Ears: external ears normal and TM's normal bilaterally Face and sinus: Yes normal facial exam Mouth: moist mucous membranes Throat: Yes tonsils normal Eyes Conjunctivae: conjunctivae normal Pupils: Equal, round and reactive pupils present and Pupil accommodation reflex normal Direct Ophthalmoscopy: normal light reflex Neck Neck: No lymphadenopathy Thyroid: Thyroid normal Chest Chest palpation & inspection: normal inspection of the chest Resp Effort & Inspection: normal respiratory effort and no audible wheezes Auscultation: clear to auscultation bilaterally, no crackles, no wheezes and lung sounds not diminished Cardio Rate: regular rate Rhythm: regular rhythm Peripheral pulses: radial pulses present and dorsalis pedis present GI Palpation (GI): no masses Auscultation: normal bowel sounds and normoactive bowel sounds Rectal Exam - Female: deferred Skin General skin exam: no rashes or lesions noted Rashes: no rashes Neuro General: No confusion Cranial nerves: Yes Equal, round and reactive pupils present and Yes Normal hearing present Cognition (Neuro): normal cognition Gait exam (Neuro): Normal gait present Motor exam (neuro): 5/5 motor strength present throughout Deep tendon reflexes (DTR's): Right brachioradialis reflex intensity grade: 2+, Left brachioradialis reflex intensity grade: 2+, Right patellar reflex intensity grade: 2+ and Left patellar reflex intensity grade: 2+ Extrem General: No edema Immunizations Tenivac (PF) 5 Lf unit-2 Lf unit/0.5 mL intramuscular suspension Performing Provider: Michael Luis MD [facility] Administered by: Ssuie Coleman CMA on 02/05/25 12:08 Dose Route Admin Location Dispensed Lot Number Expiration Date [facility] Executive Director 0.5 mL IM Left Deltoid 0.5 mL [id number] 07/29/26 [id number] [employer] Total Dispensed Waste 0.5 mL 0 % VIS Given Date VIS Provided VIS Publication Date 02/05/25 Single Vaccine 20 Eligibility Eligibility Date Funding Source Not [facility] Eligible 02/05/25 Private Coding Level of Care Code Est Pt Prev Care 40-64y(24699) Diagnoses Annual physical exam Z00.00 Obesity (BMI 30-39.9) E66.9 Impaired glucose tolerance R73.02 Generalized anxiety disorder F41.1 Gastroesophageal reflux disease without esophagitis K21.9 Esophagitis presence: without esophagitis Breast cancer screening by mammogram Z12.31 Additional Codes JAKE-7 Assessment Billing - JAKE-7 Assessment Tool: JAKE-7 Assessment 13146 ([id number]) PHQ-9 - 65225 - PHQ-9 Billing: Yes ([id number]) Assessment & Plan Assessment & Plan (1) Annual physical exam: Code(s): Z00.00 - Encounter for general adult medical examination without abnormal findings Category: Medical Plan: Patient is advised to eat healthy, keep well hydrated, keep active and have adequate sleep. (2) Obesity (BMI 30-39.9): Code(s): E66.9 - Obesity, unspecified Category: Medical Plan: Diet and exercise (3) Impaired glucose tolerance: Code(s): R73.02 - Impaired glucose tolerance (oral) Category: Medical Plan: Decrease the amount of carbohydrate intake, pasta, bread, rice and potatoes are all sugar and that is aside from all the sweet stuff, remember that fruits are good but they are Sweet also. Will request for blood work (4) Generalized anxiety disorder: Code(s): F41.1 - Generalized anxiety disorder Category: Medical Plan: On alprazolam as needed (5) GERD (gastroesophageal reflux disease): Code(s): K21.9 - Gastro-esophageal reflux disease without esophagitis Category: Medical Qualifiers: Esophagitis presence: without esophagitis Qualified Code(s): K21.9 - Gastro-esophageal reflux disease without esophagitis Plan: Avoid the foods that causes that usually spicy foods, tomato products, juices, coffee, soda and foods that your sensitive to. After eating do not lie down, allow 3-4 hours before in lie down. And keep the head of bed above 30 degrees to avoid the acid from going up. (6) Breast cancer screening by mammogram: Code(s): Z12.31 - Encounter for screening mammogram for malignant neoplasm of breast Category: Medical Plan History of Present Illness The patient is a 40-year-old female presenting for a physical examination and management of chronic conditions. The patient has a history of obesity, which has been a persistent issue. She has been advised to follow a wellness plan that includes diet and exercise. The patient has gastroesophageal reflux disease (GERD) and experiences reflux pain. She uses omeprazole as needed for symptom relief. The patient has impaired glucose tolerance with elevated blood sugar levels noted in past lab work. However, her hemoglobin A1c remains within normal limits. The patient has a diagnosis of generalized anxiety disorder and uses alprazolam as needed. She requested a refill for this medication during the visit. The patient has hypercholesterolemia, with the last LDL cholesterol level recorded at 125 mg/dL. The patient suffers from migraines, which are often triggered before her menstrual cycle or by severe neck pain. She has been prescribed migraine medication to be taken as needed. The patient has cervical spondylosis, as revealed by a cervical MRI showing moderate spondylosis at C4-C5 and C5-C6. This condition causes moderate effacement of the left lateral recess and neural foramina, contributing to her neck pain. The patient has a family history of cardiovascular and oncological conditions, including strokes in both grandmothers, a heart attack in her mother, and various cancers in the family. She reports social alcohol consumption and denies smoking or recreational drug use. Health Maintenance - Mammogram due for December 2023 - Blood work requested for diabetes management - Flu and tetanus vaccinations recommended Social History - Alcohol: Consumes socially, approximately once a month - Smoking: Denies use of cigarettes and recreational drugs Review of Systems - Neurological: Reports dizziness and disorientation while driving, denies headaches - Gastrointestinal: Reports reflux pain, denies swallowing difficulties - Respiratory: Denies shortness of breath and chest pain - Genitourinary: Denies urinary frequency at night - Musculoskeletal: Reports neck pain associated with migraines - Auditory: Reports temporary hearing issues, currently resolved Physical Exam General: Cooperative, healthy appearing, comfortable, no acute distress and well developed Orientation: Patient oriented x3 Limitations: No limitations Head: Normal to inspection Ears: Hearing grossly normal bilaterally, but left ear almost blocked due to wax Nose: Normal external nose present Face and sinus: Normal facial exam Eyes: Appearance normal, both eyes and all related structures Neck: Normal visual inspection and Yes full ROM Respiratory: Normal respiratory effort and able to speak in complete sentences. Clear to auscultation bilaterally Cardiovascular: Regular rate and rhythm. Normal S1 and S2 GI: Normal to inspection. Soft to palpation and nontender Skin: No rashes or lesions noted, but patient has keloid formation Neuro: Patient oriented x3 Extremities: Normal to inspection Results - Labs: Normal blood count, elevated blood sugar, normal hemoglobin A1c, LDL cholesterol at 125 mg/dL, normal B12, vitamin D, folic acid, and thyroid levels - Imaging: Cervical MRI showing moderate spondylosis at C4-C5 and C5-C6 with moderate effacement of the left lateral recess and neural foramina Plan Patient was informed and verbally consented to the use of an ambient scribe for clinic note documentation during this visit. 1. Obesity The patient is advised to follow a wellness plan focusing on diet and exercise to manage obesity. 2. Gastroesophageal Reflux Disease (Gerd) The patient is instructed to use omeprazole as needed for GERD symptoms. 3. Impaired Glucose Tolerance Blood work is requested to monitor glucose levels and manage impaired glucose tolerance. 4. Generalized Anxiety Disorder The patient requested a refill of alprazolam for anxiety management. 5. Hypercholesterolemia The patient is advised to continue monitoring cholesterol levels, with the last LDL recorded at 125 mg/dL. 6. Migraine Migraine medication is prescribed to be taken as needed, especially before menstrual cycles or when neck pain exacerbates. 7. Cervical Spondylosis The patient is informed about the cervical MRI findings and advised on managing neck pain associated with cervical spondylosis. Discussion Notes During the visit, I discussed the management of the patient's chronic conditions, including obesity, GERD, impaired glucose tolerance, generalized anxiety disorder, hypercholesterolemia, migraines, and cervical spondylosis. We reviewed the importance of lifestyle modifications, medication adherence, and regular monitoring of lab values. I also addressed the need for preventative care, including vaccinations and upcoming mammogram scheduling. Patient Instructions - Follow the wellness plan focusing on diet and exercise. - Take omeprazole as needed for GERD symptoms. - Complete the requested blood work for glucose monitoring. - Use prescribed migraine medication as needed. - Schedule and attend the upcoming mammogram. - Receive flu and tetanus vaccinations as discussed. Orders: Orders CT head/brain wo IV con Today R51.9 - Headache, unspecified Td Immunization Today Z23 - Encounter for immunization Medications: New sumatriptan succinate (Imitrex) 50 mg PO .QD PRN 10 tabs 4RF migraine headache G43.909 - Migraine, unspecified, not intractable, without status migrainosus Refilled alprazolam 0.25 mg PO DAILY PRN 30 tabs 0RF anxiety F41.9 - Anxiety disorder, unspecified
== END 2025-02-05 12:17 | disposition home or self-care (01) ==
LOC: HO.HMCH 11:04
PROVIDERS: PCP Internal Medicine; Visit Provider Internal Medicine
DX: Z00.00 Encounter for general adult medical examination without abnormal findings (principal); E66.9 Obesity, unspecified; R73.02 Impaired glucose tolerance (oral); Z68.31 Body mass index [BMI] 31.0-31.9, adult; Z12.31 Encounter for screening mammogram for malignant neoplasm of breast; F41.1 Generalized anxiety disorder; K21.9 Gastro-esophageal reflux disease without esophagitis; Z23 Encounter for immunization

== ENCOUNTER → 2025-02-05 11:03 | Outpatient (BNVA) | payer OTHER, SELFPAY | PROVIDERS: PCP Internal Medicine; Visit Provider Internal Medicine | DX: Z00.00 Encounter for general adult medical examination without abnormal findings (principal); R73.02 Impaired glucose tolerance (oral); F41.1 Generalized anxiety disorder; K21.9 Gastro-esophageal reflux disease without esophagitis; E66.9 Obesity, unspecified; E78.00 Pure hypercholesterolemia, unspecified; G43.909 Migraine, unspecified, not intractable, without status migrainosus; M47.812 Spondylosis without myelopathy or radiculopathy, cervical region; Z23 Encounter for immunization; Z68.31 Body mass index [BMI] 31.0-31.9, adult | CPT/HCPCS: 90471; 90714; 96127; 99396 ==

== ENCOUNTER 2025-02-21 08:04 | Outpatient (REF) | payer OTHER, SELFPAY ==
--- OUTSIDE RECORDS SUMMARY | 2025-02-21 08:11 | XMS_ITS | Clinical Summary ---
Author Organization [address] [facility] Address [address] [place] [address] Phone Care Team Providers Care Supervisor Speech Name Role Phone Michael Luis MD Primary Care Provider Medical History Medical History Date Comments Dysplastic nevi 09/28/2016 DX:Dysplastic ne vi Rosacea 03/19/2017 DX:Rosacea Melanoma in situ (CMS/HCC V2 4, CMS/HCC V28) 04/11/2017 DX:Melanoma in situ ([facility]); C OMMENT: Right anterior tibia - 03/2017 Family History Medical History Relation Name Comments Rheum arthritis Mother Relation Name Status Comments Father Alive Mother Social History Tobacco Use Types Packs/Day Years Used Date Smoking Tobacco: Never Smokeless Tobacco: Never Alcohol Use Standard Drinks/Week Comments Yes 0 (1 standard drink = 0.6 oz pur e alcohol) Comments Unknown Sex and Gender Information Value Date Recorded Sex Assigned at Not on file Legal Sex Female 7:42 AM EST Gender Identity Not on file Sexual Orientation Not on file Obstetrics History Plan of Treatment Health Maintenance Due Date Last Done Comments Breast Cancer Screening 1984 DTaP,Tdap,and Td Vaccines (1 - Tdap) 01/25/2003 Hepatitis B Vaccines (1 of 3 - 19+ 3-dose series) 01/25/2003 Cervical Cancer Screening: P ap Smear 01/25/2005 HPV Vaccines (1 - 3-dose SCD M series) 01/25/2011 Cholesterol Screening (Lipid Panel) 04/02/2022 HIV Screening 04/02/2022 Hepatitis C Screening 04/02/2022 Social Influencers of Health Screening 04/02/2022 Depression Screening 04/30/2024 COVID-19 Vaccine (1 - 2023-2 5 season) 2024 Influenza Vaccine (#1) 2024 RSV Immunization Adult Patie nts (1 - 1-dose 75+ series) 01/25/2059 HIB Vaccines Aged Out No longer eligi ble based on patient's age to complete this topic Hepatitis A Vaccines Aged Out No long er eligible based on patient's age to complete this topic IPV Vaccines Aged Out No longer eligi ble based on patient's age to complete this topic MMR Vaccines Aged Out No longer eligi ble based on patient's age to complete this topic Meningococcal ACWY Vaccine Aged Out N o longer eligible based on patient's age to complete this topic Meningococcal B Vaccine Aged Out No l onger eligible based on patient's age to complete this topic Pneumococcal Vaccine: Pediat rics (0 to 5 Years) and At-Risk Patients (6 to 49 Years) Aged Out No longer eligible b ased on patient's age to complete this topic RSV Immunization Patients Un caleb 20 months Aged Out No longer eligible b ased on patient's age to complete this topic Varicella Vaccines Aged Out No longer eligible based on patient's age to complete this topic Insurance [facility] Care Teams Supervisor Speech Relationship Specialty Start Date End Date Michael Luis MD [address] [place] [address] [address] [facility] [place] [address] PCP - General Internal Medicine 05/11/16
--- OUTSIDE RECORDS SUMMARY | 2025-02-21 08:11 | XMS_ITS | Encounter Summary ---
Author Organization [facility] Address [address] [place] [address] Care Team Providers Care Administration Internship Name Role Phone Michael Luis MD Primary Care Provider [phone] Encounter Details Date Type Department Care Team (Late st Contact Info) Description 08/26/2024 Lab Requisition [facility] - Main Lab [address] [place] [address] Emeterio Desai III, MD [address] [place] [address] [place] [id number] Melanocytic nevi of trunk Social History Tobacco Use Types Packs/Day Years Used Date Smoking Tobacco: Never Smokeless Tobacco: Never Alcohol Use Standard Drinks/Week Comments Yes 0 (1 standard drink = 0.6 oz pur e alcohol) Comments Unknown Sex and Gender Information Value Date Recorded Sex Assigned at Not on file Legal Sex Female 7:42 AM EST Gender Identity Not on file Sexual Orientation Not on file documented as of this encounter Plan of Treatment Not on file documented as of this encounter Procedures Procedure Name Priority Date/Time Associated Diagnosis Comments TISSUE EXAM Routine 08/26/2024 Melanocytic nevi of trunk documented in this encounter Results * Tissue Exam (08/26/2024) Final Diagnosis Skin, abdominal wall, excision: Healing wound with brisk lymphohistiocytic infiltrate No neoplasm or atypical melanocytic proliferation identified 08/27/2024 11:12 AM EDT [facility] HOSPITAL LAB Clinical Information Atypical skin lesion abdominal wall Suture short superior long lateral D22.5 08/27/2024 11:12 AM EDT [facility] Gross Description A. Abdominal Wall, suture short superior long lateral: Labeled atypical skin lesion abdominal wall . Received in formalin is a 4.9 x 1.5 cm oriented frey-white skin ellipse excised to a depth of 1.3 cm. There is a short suture on one edge designating superior, and a long suture on one tip designating lateral per the requisition. The epidermis displays a 1.5 x 1.2 cm faint pink-white well-healed scar, located 0.1 cm from the superior and inferior margins. The superior margin is inked blue, inferior black, lateral epidermis green. The specimen is sectioned in a cruciate manner. Patient Relations Liaison sections, to include the entire scar, are submitted as follows: 1, cruciate medial and lateral tips (lateral epidermis inked green), two pieces 2-4, sequential cross-sections from lateral to medial, two pieces each. MARIOLA 08/27/2024 11:12 AM EDT [facility] Disclaimer Unless otherwise specified, all tissue is 10% NB formalin fixed and paraffin embedded. 08/27/2024 11:12 AM EDT [facility] Tissue Structure of abdominopelvic wall / Unknown 08/26/2024 08/26/2024 3:29 PM EDT us Emeterio Desai III, MD LAB PATHOLOGY ORDERABLES Fi nal Result [facility] [address] [place] [address], documented in this encounter Visit Diagnoses Diagnosis Melanocytic nevi of trunk documented in this encounter Care Teams Administration Internship Relationship Specialty Start Date End Date Michael Luis MD [address] [place] [address] [address] [facility] [place] [address] PCP - General Internal Medicine 05/11/16 documented as of this encounter
--- OUTSIDE RECORDS SUMMARY | 2025-02-21 08:11 | XMS_ITS | Clinical Summary ---
Author Organization [facility] Address [address] [place] [id number] Phone Care Team Providers Care Otr Refrigerated Cdl Truck Driver Name Role Phone Michael Luis MD Primary Care Provider [phone] Manuela Rodriguez MD Unavailable [phone] Allergies Active Allergy Reactions Criticality Noted Date Comments Amoxicillin 09/12/2021 Citalopram 09/12/2021 Metronidazole 09/12/2021 Penicillins 09/12/2021 Oxycodone-Acetaminophen Nausea and/or Vomiting 01/11/2022 Medications ALPRAZolam (XANAX) 0.25 MG tablet Take 0.25 mg by mouth nightly at bedtime as needed for sleep. Active loratadine (CLARITIN) 10 mg tablet Take 10 mg by mouth daily. Active famotidine (PEPCID) 40 MG tablet Take 40 mg by mouth nightly at bedtime as needed for heartburn. Active semaglutide (OZEMPIC SUBQ) Inject 0.5 mg under the skin. 07/12/2022 Active meclizine (ANTIVERT) 25 mg tablet Take by mouth as needed. Active docusate sodium (COLACE) 100 MG capsule Take 1 capsule (100 mg total) by mouth 2 (two) times a day. 30 capsule 11/07/2022 Active ondansetron (ZOFRAN) 4 MG tablet Take 1 tablet (4 mg total) by mouth every 8 (eight) hours as needed for nausea. 30 tablet 1 11/07/2022 Active a-cysteine/arg zinc/glut/mv-mn (L GLUTAMINE-N MIQK-TTF-THY-CO N ORAL) Take by mouth. Active Bacillus coagulans-inuli n 1 billion-250 cell-mg Cap Take 250 mg by mouth daily. Active HYDROcodone-pino taminophen (NORCO) 5-325 mg per tablet Take 1 tablet by mouth every 6 (six) hours as needed for pain (specific location in comments). 30 tablet 11/30/2022 Active cyclobenzaprine (FLEXERIL) 5 MG tablet Take 1 tablet (5 mg total) by mouth 3 (three) times a day as needed. 15 tablet 11/30/2022 Active clindamycin (CLEOCIN) 300 MG capsule Take 1 capsule (300 mg total) by mouth 3 (three) times a day. Take 1 tab every 8 hours for 1 week 21 capsule 11/30/2022 Active ibuprofen (ADVIL,MOTRIN) 800 MG tablet Take 1 tablet (800 mg total) by mouth every 6 (six) hours as needed for pain (specific location in comments). 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 Diastasis recti 02/09/2021 Obesity 02/09/2021 Skin laxity 02/09/2021 Melanoma in situ 04/11/2017 Overview (01/11/2022): Right anterior tibia - 03/2017 Rosacea 03/19/2017 Immunizations Immunization Administration Dates Next Due COVID-19 (Pre-02/19) Pfizer Vaccine, mRNA, PF 06/08/2021,09/15/2020,08/18/2020 Influenza Quadrivalent w/ Preservative IM 2020 Family History Relation Status Comments Father Alive Mother Social History Tobacco Use Types Packs/Day Years Used Date Smoking Tobacco: Never Smokeless Tobacco: Never Tobacco Cessation:Counseling Given: Not Answered Alcohol Use Standard Drinks/Week Comments Not Currently 0 (1 standard drink = 0.6 oz pure alcohol) 2 drinks a month at most, not drinking since beginning of october 2022 Education Answer Date Recorded Are you interested in more education? Not on eunice e 08/25/2022 Are you concerned about learning? Not on file 08/25/2022 No 08/25/2022 No 08/25/2022 Digital Access Answer Date Recorded No 09/25/2022 No 09/25/2022 Reliable internet access at home? Not on file 09/25/2022 Device with a working camera? Not on file Comments No Sex and Gender Information Value Date Recorded Sex Assigned at Female 11/06/2022 6:45 PM EDT Legal Sex Female 9:07 AM EST Gender Identity Female 11/06/2022 6:45 PM EDT Sexual Orientation Not on file Last Filed Vital Signs Vital Sign Reading Time Taken Comments Blood Pressure 112/84 11/23/2022 3:36 PM EDT Pulse 98 11/23/2022 1:30 PM EDT Temperature 36.3 C (97.3 F) 11/23/2022 3:36 PM EDT Respiratory Rate 17 11/23/2022 3:30 PM EDT Oxygen Saturation 96% 11/23/2022 3:36 PM EDT Inhaled Oxygen Concentration - - Weight 78.5 kg (173 lb) 11/13/2022 1:14 PM EDT Height 165.1 cm (5' 5 ) 11/13/2022 1:14 PM EDT Body Mass Index 28.79 11/13/2022 1:14 PM EDT Plan of Treatment Health Maintenance Due Date Last Done Comments Adult Td,Tdap Booster 1984 DEPRESSION SCREENING 1996 HEPATITIS C SCREENING 01/25/2002 HIV ONE-TIME SCREENING (18-65 YEARS) 01/25/2002 PNEUMOCOCCAL VACCINES (0-49 years) (1 of 2 - PCV) 01/25/2003 PAP SMEAR 01/25/2005 SCREENING FOR DIABETES 01/25/2019 MAMMOGRAM 2024 INFLUENZA VACCINE (#1) 2024 2, 01/19/2021, 02/02/2020, Additional history exists COVID-19 VACCINE ( season) 2024 06/08/2021, 06/08/2021, 09/15/2020, Additional history exists SMOKING STATUS SCREENING (Once After 26 Yrs) Completed 11/13/2022 HEPATITIS A VACCINES Aged Out No long er eligible based on patient's age to complete this topic HIB VACCINES Aged Out No longer eligi ble based on patient's age to complete this topic MENINGOCOCCAL VACCINES (ACWY) Aged Out No longer eligible based on patient's age to complete this topic MENINGOCOCCAL VACCINES (B) Aged Out N o longer eligible based on patient's age to complete this topic Medical Devices Not on file Insurance ACO ACO ACO [place] [address] [place] [address] ACO Advance Directives For more information, please contact: [phone] (9AM - 5PM [facility] * Full Code (Latest Code Status on File) Date Activated Date Inactivated Comments 11/23/2022 7:03 AM Question Answer Comments Code Status Confirmed With: Patient Care Teams Otr Refrigerated Cdl Truck Driver Relationship Specialty Start Date End Date Michael Luis MD [address] [place] [address] Drive [address] [place] [id number] PCP - General 09/12/21 Manuela Rodriguez MD [facility] [place] [address] Dermatology 01/11/22 Additional Source Comments The information contained in this document represents components of the legal health record. It is not the complete legal health record.[facility]
--- OUTSIDE RECORDS SUMMARY | 2025-02-21 08:12 | XMS_ITS | Encounter Summary ---
Author Organization [facility] Address [address] [address] Phone Care Team Providers Care Draw Bench Operator Helper Name Role Phone Michael Luis MD Primary Care Provider [phone] Manuela Rodriguez MD Unavailable [phone] Encounter Details Date Type Department Care Team (Late st Contact Info) Description 11/23/2022 Procedure Pass OR Admitting Dept - Virtual Department [address] [place] [address] Social History Tobacco Use Types Packs/Day Years Used Date Smoking Tobacco: Never Smokeless Tobacco: Never Alcohol Use Standard Drinks/Week Comments Not Currently [...] PM EDT Sexual Orientation Not on file documented as of this encounter Plan of Treatment Not on file documented as of this encounter Visit Diagnoses Not on filedocumented in this encounter Care Teams Draw Bench Operator Helper Relationship Specialty Start Date End Date Michael Luis MD [address] [place] [address] [address] [place] [address] PCP - General 09/12/21 Manuela Rodriguez MD [address] [place] [address] [place] [address] Dermatology 01/11/22 documented as of this encounter Additional Source Comments The information contained in this document represents components of the legal health record. It is not the complete legal health record.[facility]
[2025-02-21 08:20] LABS: MANUAL DIFF FLAG NO
[2025-02-21 08:53] LABS: Hematocrit 45.4 % (37.0-47.0); Hemoglobin 15.2 g/dl (12.0-16.0); Imm Gran Abs Auto 0.01 X10*3/uL (0.00-0.03); Imm Gran Pct Auto 0.2 % (0.0-0.4); Lymphocytes Absolute Auto 1.6 X10*3/uL (1.2-4.9); Mean Corpuscular HGB Conc 33.5 g/dl (31.0-35.0); Mean Corpuscular Hemoglobin 30.6 pg (27.0-33.0); Mean Corpuscular Volume 91.3 fL (80.0-98.0); NRBC Abs Auto 0.000 X10*3/uL (0.0-0.012); NRBC Pct Auto 0.0 /100WBC (0.0-0.2); Platelet Count 221 X10*3/uL (160-400); Red Blood Count 4.97 X10*6/uL (4.20-5.50); White Blood Count 6.6 X10*3/uL (4.8-10.8)
[2025-02-21 09:47] LABS: Alanine Aminotransferase 23 U/L (0-31); Albumin Level 4.8 g/dL (3.5-5.0); Alkaline Phosphatase 64 U/L (39-117); Anion Gap 14 (12-20); Aspartate Amino Transferase 21 U/L (5-31); Blood Urea Nitrogen 13 mg/dL (9-16); Calcium 9.7 mg/dL (8.4-10.2); Carbon Dioxide 25 mmol/L (22-29); Chloride 107 mmol/L (96-108); Cholesterol 228 mg/dL (<200); Estimated Glomerular Filt Rate > 60; HDL Cholesterol 59 mg/dL (>40); Magnesium 2.0 mg/dL (1.6-2.6); Potassium 4.1 mmol/L (3.3-5.1); Sodium 142 mmol/L (135-145); Total Protein 7.3 g/dL (6.5-8.0); Triglycerides 89 mg/dL (<150)
[2025-02-21 10:06] LABS: Free T4 (Free Thyroxine) 0.94 ng/dL (0.71-1.85); Thyroid Stimulating Hormone 1.93 uIU/mL (0.32-4.0)
[2025-02-21 10:15] LABS: Folate 11.8 ng/mL (> or = 4.0); Vitamin B12 462 pg/mL (200-900)
[2025-02-21 10:16] LABS: Uric Acid 5.6 mg/dL (2.4-5.7)
== END 2025-02-21 08:05 | disposition home or self-care (01) ==
LOC: HO.LAB 08:04
PROVIDERS: PCP Internal Medicine; Visit Provider Internal Medicine
DX: E78.00 Pure hypercholesterolemia, unspecified (principal); R51.9 Headache, unspecified
CPT/HCPCS: 36415; 80053; 80061; 82306; 82607; 82746; 83036; 83735; 84439; 84443; 84550; 85025